=== PATIENT | female | born 1985 | race Caucasian/White ===

== ENCOUNTER 2016-12-09 10:40 | Emergency (ER) | payer OTHER ==
[2016-12-09] MEDS ORDERED: ALBUTEROL SO4 2.5/IPRATROPIUM 0.5 INH SOL 3 ML VIAL.NEB. NEB ONE ×3 (10:47→11:20)
[2016-12-09] MEDS ORDERED: methylPREDNISolone NA SUCC 125 MG/2 ML VIAL ONE (10:47)
[2016-12-09 11:00] VITALS: TEMP 99.3; BMI 30.9
--- NOTE | 2016-12-09 11:02 | PDOC ---
History of Present Illness <Chito Juan - Last Filed: 12/09/16 12:54> - History of Present Illness Initial Comments: 12/09/16 13:36 The patient is a 31 year old female, with a significant past medical history of asthma (admission last year, intubation 10+ years ago), polycystic kidney disease, and hypertension, who presents to the emergency department via ems for increased shortness of breath today. The patient states she has had a cold for the past few days with a cough productive of green sputum. She states she has been using her inhaler every 4 hours as prescribed, with no relief of her shortness of breath. She states she feels like she can not take a deep breath. As per ems, the patient received 2 nebulizer treatments in the ambulance. She denies chest pain, headache and dizziness. She denies fever, chills, nausea , vomit, diarrhea and constipation. She denies dysuria, frequency, urgency and hematuria. Allergies: NKDA PCP - Dr. Thien Hernandez <Rosibel Ortega - Last Filed: 12/09/16 13:37> - General Chief Complaint: Shortness of Breath Stated Complaint: ASTHMA ATTACK Time Seen by Provider: 12/09/16 10:47 Past History - Past Medical History Anemia: No Asthma: Yes Cancer: No Cardiac Disorders: No CVA: No COPD: No Diabetes: No HTN: Yes HIV: Yes (polycystic kidneys) Seizures: No Thyroid Disease: No - Immunization History Immunization Up to Date: Yes - Psycho/Social/Smoking Cessation Hx Anxiety: No Suicidal Ideation: No Smoking Status: No Smoking History: Never smoked Have you smoked in the past 12 months: No Number of Cigarettes Smoked Daily: 0 Information on smoking cessation initiated: No Hx Alcohol Use: No Drug/Substance Use Hx: No Substance Use Type: None Hx Substance Use Treatment: No <Chito Juan - Last Filed: 12/09/16 12:54> <Rosibel Ortega - Last Filed: 12/09/16 13:37> - Past Medical History Allergies/Adverse Reactions: Allergies Allergy/AdvReac Type Severity Reaction Status Date / Time No Known Allergies Allergy Verified 12/09/16 10:54 Home Medications: Ambulatory Orders Albuterol Sulfate Inhaler - [Ventolin HFA Inhaler -] 1 - 2 inh PO Q4H #1 inhaler 03/28/16 Budesonide/Formeterol Fumarate [SYMBICORT 160/4.5mcg -] 2 puff IH BID #1 inhaler 03/28/16 Albuterol 0.083% Nebulizer Koki [Ventolin 0.083% Nebulizer Soln -] 1 neb NEB Q4H PRN #30 vial 08/29/16 Amlodipine Besylate [Norvasc -] 5 mg PO DAILY 12/09/16 Azithromycin [Zithromax -] 250 mg PO DAILY #6 tab 12/09/16 Prednisone [Deltasone -] 40 mg PO DAILY #8 tablet 12/09/16 Review of Systems - Review of Systems Able to Perform ROS?: Yes Comments:: 12/09/16 13:37 CONSTITUTIONAL: No reported: Fever, Chills, Diaphoresis, Generalized Weakness, Malaise, Loss of Appetite HEENT: No reported: Rhinorrhea, Nasal Congestion, Throat Pain, Throat Swelling, Difficulty Swallowing, Mouth Swelling, Ear Pain, Eye Pain, Visual Changes CARDIOVASCULAR: No reported: Chest Pain, Syncope, Palpitations, Irregular Heart Rate, Lightheadedness, Peripheral Edema RESPIRATORY: (+) Cough, Shortness of Breath. No reported:Orthopnea, Wheezing, Stridor, Hemoptysis GASTROINTESTINAL: No reported: Abdominal pain, Abdominal Distension, Nausea, Vomiting, Diarrhea, Constipation, Melena, Hematochezia GENITOURINARY: No reported: Dysuria, Frequency, Urgency, Hesitancy, Flank Pain, Genital Pain MUSCULOSKELETAL: No reported: Myalgia, Arthralgia, Joint Swelling, Back pain, Neck Pain SKIN: No reported: Rash, Itching, Pallor HEMEATOLOGIC/IMMUNOLOGIC: No reported: Easy Bleeding, Easy Bruising, Lymphadenopathy, Frequent infections ENDOCRINE: No reported: Unexplained Weight Gain, Unexplained Weight Loss, Heat Intolerance , Cold Intolerance NEUROLOGIC: No reported: Headache, Focal Weakness, Paresthesias, Vertigo, Lightheadedness, Unsteady Gait, Seizure, Mental Status Changes, Incontinence PSYCHIATRIC: No reported: Anxiety, Depression <Rosibel Ortega - Last Filed: 12/09/16 13:37> *Physical Exam - Vital Signs Last Vital Signs Temp Pulse Resp BP Pulse Ox 99.3 F 104 H 18 151/109 98 12/09/16 10:40 12/09/16 10:40 12/09/16 10:40 12/09/16 10:40 12/09/16 10:40 <Chito Juan - Last Filed: 12/09/16 12:54> - Vital Signs Last Vital Signs Temp Pulse Resp BP Pulse Ox 99.3 F 106 H 22 142/105 100 12/09/16 10:40 12/09/16 11:46 12/09/16 11:46 12/09/16 11:46 12/09/16 11:46 - Physical Exam Comments: 12/09/16 13:37 GENERAL: The patient is awake, alert, and fully oriented, Nontoxic - in no acute distress. HEAD: Normocephalic, atraumatic. EYES: extraocular movements intact, sclera anicteric, conjunctiva clear. ENT: Normal voice, Moist mucous membranes. NECK: Normal range of motion, supple LUNGS: (+) Scattered wheezing with good air movement No rhonchi, no rales. speaking complete sentences. HEART: Regular rate and rhythm, without murmur, rub or gallop. ABDOMEN: Soft, nontender, normoactive bowel sounds. No guarding, no rebound.No CVA tenderness EXTREMITIES: Normal range of motion, no edema. No clubbing or cyanosis. No cords, erythema, or tenderness. NEUROLOGICAL: No facial assymetry, Normal speech, PSYCH: Normal mood, normal affect. SKIN: Warm, Dry, normal turgor, <Rosibel Ortega - Last Filed: 12/09/16 13:37> ED Treatment Course - RADIOLOGY Radiology Studies Ordered: Category Date Time Status CHEST PA & LAT [RAD] Stat Radiology 12/09/16 10:55 Ordered <Chito Juan - Last Filed: 12/09/16 12:54> - Medications Given in the ED: ED Medications Discontinued Medications Generic Name Dose Route Start Last Admin Trade Name Freq PRN Reason Stop Dose Admin Albuterol/Ipratropium 1 amp 12/09/16 11:15 12/09/16 11:08 Duoneb - NEB 12/09/16 11:16 1 amp ONCE ONE Administration Albuterol/Ipratropium 1 amp 12/09/16 11:20 12/09/16 11:20 Duoneb - NEB 12/09/16 11:21 1 amp NOW ONE Administration Guaifenesin/Codeine Phosphate 10 ml 12/09/16 13:07 12/09/16 13:20 Robitussin Ac - PO 12/09/16 13:08 10 ml ONCE ONE Administration <Rosibel Ortega - Last Filed: 12/09/16 13:37> Medical Decision Making - Medical Decision Making 12/09/16 10:58 31y F hx of asthma (1 hospitalization last year, intubation 10+ years ago) presents with URI sypmtoms as well as sob/cough for the past few days - no associated fever. Per EMS sh ewas give solumedrol and 1 duoneb, here her vitals were slightly tachy, sat was 100% on RA - liely b/c she just received a neb, her lungs revealed mild wheezing, but good airmovement. Suspect pts sob/ coughing secondary to bronchospasm with recent URI will give nebs will ck xray will reassess 12/09/16 12:47 pts xray shows suggestion of a developing RUL infiltrate will give azithromycin considered inpatient management, but pt prefers to go home. I feel the pt is a good outpatient candidate. will d/c the pt with azithromycin as well as prednisone We'll have the patient follow up with her primary care doctor return precautions were discussed I discussed the physical exam findings, ancillary test results and final diagnoses with the patient. I answered all of the patient's questions. The patient was satisfied with the care received and felt comfortable with the discharge plan and treatment plan. The patient will call their primary care physician within 24 hours to arrange follow-up and will return to the Emergency Department with any new, persistent or worsening symptoms. A portion of this note was documented by scribe services under my direction. I have reviewed the details of the note, within reason, and agree with the documentation with the following case summary and management plan written by me <Chito Juan - Last Filed: 12/09/16 12:54> *DC/Admit/Observation/Transfer - Discharge Dispostion Admit: No <Chito Juan - Last Filed: 12/09/16 12:54> - Attestations Scribe Attestion: 12/09/16 13:37 Documentation prepared by Rosibel Ortega, acting as medical staff director for Chito Juan MD, <Rosibel Ortega - Last Filed: 12/09/16 13:37> Diagnosis at time of Disposition: Pneumonia Qualifiers: Pneumonia type: due to unspecified organism Laterality: right Lung location: upper lobe of lung Qualified Code(s): J18.9 - Pneumonia, unspecified organism Asthma Qualifiers: Asthma severity: unspecified severity Asthma complication type: with acute exacerbation Qualified Code(s): J45.901 - Unspecified asthma with (acute) exacerbation - Discharge Dispostion Disposition: HOME Condition at time of disposition: Improved - Prescriptions Prescriptions: Prednisone [Deltasone -] 40 mg PO DAILY #8 tablet Azithromycin [Zithromax -] 250 mg PO DAILY #6 tab - Referrals Referrals: Thien Hernandez MD [Primary Care Provider] - - Patient Instructions Printed Discharge Instructions: DI for Asthma -- Adult, DI for Pneumonia -- Adult Additional Instructions: Return to the emergency department immediately with ANY new, persistent or worsening symptoms including any shortness of breath or other concerns. You MUST call and follow up with your doctor tomorrow for further evaluation of your symptoms. Results were discussed with you. Please make sure your doctor reviews the results of your emergency evaluation. Print Language: YAKUT
[2016-12-09 11:47] VITALS: BP 142/105; PULSE 106
[2016-12-09] MEDS ORDERED: guaiFENesin/CODEINE 10 ML UNIT-DOSE CUPS PO ONE (13:07)
[2016-12-09] MEDS ORDERED: guaiFENesin/CODEINE 5 ML UNIT-DOSE CUPS PO ONE (13:16)
== END 2016-12-09 13:32 | disposition home or self-care (01) ==
LOC: JER 10:40
PROC: 3E0F7GC Introduction of Other Therapeutic Substance into Respiratory Tract, Via Natural or Artificial Opening (ICD-10-PCS; principal; 2016-12-09)
PROC: 3E0F7GC Introduction of Other Therapeutic Substance into Respiratory Tract, Via Natural or Artificial Opening (ICD-10-PCS; 2016-12-09)
DX: J18.9 Pneumonia, unspecified organism (principal); J45.901 Unspecified asthma with (acute) exacerbation; I10 Essential (primary) hypertension; E28.2 Polycystic ovarian syndrome
CPT/HCPCS: 71020-TC; 94640; 99283-25

== ENCOUNTER 2016-12-09 20:49 | Inpatient (IN) | payer OTHER ==
[2016-12-09 21:06] VITALS: BMI 25.7
--- NOTE | 2016-12-09 21:49 | PDOC ---
History of Present Illness - History of Present Illness Initial Comments: 12/09/16 22:39 Patient is a 31 year old female with significant medical hx of HTN, polycystic kidney disease, and asthma (admission last year, intubation 10+ years ago) who has returning to the ED after discharge from the ED today for diagnosis of upper lobe pneumonia. Patient was seen earlier today for progressive dyspnea, cold symptoms, and productive cough. She returned to the ED tonight because she was unable to pay for her medication at the pharmacy. PCP: Thien Hernandez MD <Asya Marina - Last Filed: 12/09/16 22:42> <Micaela Bergman - Last Filed: 12/10/16 05:46> - General Chief Complaint: Respiratory Stated Complaint: DIFF BREATHING Time Seen by Provider: 12/09/16 21:49 Past History <Asya Marina - Last Filed: 12/09/16 22:42> - Past Medical History Anemia: No Asthma: Yes Cancer: No Cardiac Disorders: No CVA: No COPD: No Diabetes: No HTN: Yes HIV: Yes (polycystic kidneys) Seizures: No Thyroid Disease: No - Immunization History Immunization Up to Date: Yes - Psycho/Social/Smoking Cessation Hx Anxiety: No Suicidal Ideation: No Smoking Status: No Smoking History: Never smoked Have you smoked in the past 12 months: No Number of Cigarettes Smoked Daily: 0 Hx Alcohol Use: No Drug/Substance Use Hx: No Substance Use Type: None Hx Substance Use Treatment: No <Micaela Bergman - Last Filed: 12/10/16 05:46> - Past Medical History Allergies/Adverse Reactions: Allergies Allergy/AdvReac Type Severity Reaction Status Date / Time No Known Allergies Allergy Verified 12/09/16 21:03 Home Medications: Ambulatory Orders Albuterol Sulfate Inhaler - [Ventolin HFA Inhaler -] 1 - 2 inh PO Q4H #1 inhaler 03/28/16 Budesonide/Formeterol Fumarate [SYMBICORT 160/4.5mcg -] 2 puff IH BID #1 inhaler 03/28/16 Albuterol 0.083% Nebulizer Koki [Ventolin 0.083% Nebulizer Soln -] 1 neb NEB Q4H PRN #30 vial 08/29/16 Amlodipine Besylate [Norvasc -] 5 mg PO DAILY 12/09/16 Azithromycin [Zithromax -] 250 mg PO DAILY #6 tab 12/09/16 Prednisone [Deltasone -] 40 mg PO DAILY #8 tablet 12/09/16 Review of Systems - Review of Systems Comments:: 12/09/16 22:39 CONSTITUTIONAL: Absent: fever, chills, diaphoresis, generalized weakness, malaise, loss of appetite HEENT: Present: rhinorrhea, nasal congestion Absent: throat pain, throat swelling, difficulty swallowing, mouth swelling, ear pain, eye pain, visual changes CARDIOVASCULAR: Absent: chest pain, syncope, palpitations, irregular heart rate, lightheadedness , peripheral edema RESPIRATORY: Present: productive cough, dyspnea, wheezing, stridor Absent: dyspnea with exertion, orthopnea, hemoptysis GASTROINTESTINAL: Absent: abdominal pain, abdominal distension, nausea, vomiting, diarrhea, constipation, melena, hematochezia GENITOURINARY: Absent: dysuria, frequency, urgency, hesitancy, hematuria, flank pain, genital pain MUSCULOSKELETAL: Absent: myalgia, arthralgia, joint swelling SKIN: Absent: rash, itching, pallor HEMATOLOGIC/IMMUNOLOGIC: Absent: easy bleeding, easy bruising, lymphadenopathy, frequent infections ENDOCRINE: Absent: unexplained weight gain, unexplained weight loss, heat intolerance, cold intolerance NEUROLOGIC: Absent: headache, focal weakness or paresthesia, dizziness, unsteady gait, seizure, mental status changes, bladder or bowel incontinence. PSYCHIATRIC: Absent: anxiety, depression, suicidal or homicidal ideation, hallucinations <Laina,Asya - Last Filed: 12/09/16 22:42> *Physical Exam - Vital Signs Last Vital Signs Temp Pulse Resp BP Pulse Ox 98 H 18 148/102 98 12/09/16 21:00 12/09/16 21:00 12/09/16 21:00 12/09/16 21:00 - Physical Exam Comments: 12/09/16 22:40 GENERAL: Well developed, well nourished. Awake and alert. No acute distress. HEENT: Normocephalic, atraumatic. PERRLA, EOMI. No conjunctival pallor. Sclera are non- icteric. Moist mucous membranes. Oropharynx is clear. NECK: Supple. Full ROM. No JVD. Carotid pulses 2+ and symmetric, without bruits. No thyromegaly. No lymphadenopathy. CARDIOVASCULAR: Regular rate and rhythm. No murmurs, rubs, or gallops. Distal pulses are 2+ and symmetric. PULMONARY: Left lung stridor. Bilateral wheezing and rhonchi. No evidence of respiratory distress. ABDOMINAL: Soft. Non-tender. Non-distended. No rebound or guarding. No organomegaly. Normoactive bowel sounds. MUSCULOSKELETAL: Normal range of motion at all joints. No bony deformities or tenderness. No CVA tenderness. EXTREMITIES: No cyanosis. No clubbing. No edema. No calf tenderness. SKIN: Warm and dry. Normal capillary refill. No rashes. No jaundice. NEUROLOGICAL: Alert, awake, appropriate. Cranial nerves 2-12 intact. Normal speech. Gait is normal without ataxia. PSYCHIATRIC: Cooperative. Good eye contact. Appropriate mood and affect. <Asya Marina - Last Filed: 12/09/16 22:42> - Vital Signs Last Vital Signs Temp Pulse Resp BP Pulse Ox 98 H 18 148/102 98 12/09/16 21:00 12/09/16 21:00 12/09/16 21:00 12/09/16 21:00 <Micaela Bergman - Last Filed: 12/10/16 05:46> Heart Score/ECG Review #1 12/09/16 22:43 Poor data quality, interpretation may be adversely affected Normal sinus rhythm at 91 bpm Normal ECG <Asya Marina - Last Filed: 12/09/16 22:42> ED Treatment Course - LABORATORY CBC & Chemistry Diagram: 12/09/16 10:20 12/09/16 10:20 - Medications Given in the ED: ED Medications Discontinued Medications Generic Name Dose Route Start Last Admin Trade Name Freq PRN Reason Stop Dose Admin Ceftriaxone Sodium 1 mg/ 50 mls @ 100 mls/hr 12/09/16 21:59 12/09/16 22:18 Dextrose IVPB 12/09/16 22:28 100 mls/hr ONCE ONE Administration <Asya Marina - Last Filed: 12/09/16 22:42> - LABORATORY CBC & Chemistry Diagram: 12/09/16 10:20 12/09/16 10:20 <Micaela Bergman - Last Filed: 12/10/16 05:46> Medical Decision Making - Medical Decision Making 12/09/16 22:55 pt's EKG is NSR; Pt was here at 11am, and diagnosed with pneumonia; she was sent home with piper; she couldn't afford the copay; she comes back with worsening pneumonia and SOB. SHe will be worked up at this time. CXR ths AM shows an upper lobe pneumonia. WBC is only 5 and she has no fever. 12/10/16 05:45 Pt will be admitted as she is having SOB and she has elevated blood sugasr, and she will require an inpatient hb A1C to differentiate if this is new onset DM or simply due to use of steroids for asthma. Admit to hospitalist <Micaela Bergman - Last Filed: 12/10/16 05:46> *DC/Admit/Observation/Transfer - Attestations Scribe Attestion: 12/09/16 22:42 Documentation prepared by Asya Marina, acting as medical consultant for Micaela Bergman MD. <Asya Marina - Last Filed: 12/09/16 22:42> - Discharge Dispostion Admit: Yes <Micaela Bergman - Last Filed: 12/10/16 05:46> Diagnosis at time of Disposition: Elevated random blood glucose level Pneumonia Qualifiers: Pneumonia type: due to unspecified organism Laterality: right Lung location: upper lobe of lung Qualified Code(s): J18.9 - Pneumonia, unspecified organism - Referrals
[2016-12-09] MEDS ORDERED: CEFTRIAXONE 1 MG in DEXTROSE 5%-WATER - 50 ML IVPB ONE (21:59)
[2016-12-09] MEDS ORDERED: AZITHROMYCIN IVPB 500 MG in DEXTROSE 5%-WATER - 250 ML IVPB ONE (22:00)
[2016-12-09] MEDS ORDERED: AZITHROMYCIN IVPB 250 ML IVPB ONE (22:11)
[2016-12-09] MEDS ORDERED: CEFTRIAXONE 50 ML ONE (22:11)
[2016-12-09 22:38] LABS: BASOPHIL 0.6 % (0-2.0); MCH 29.9 pg (25.7-33.7); MEAN CELL VOLUME 90.7 fl (80-96); MEAN PLT VOLUME 9.4 fl (7.5-11.1); NEUTROPHILS 84.7 % (42.8-82.8); PLATELET COUNT 210 K/MM3 (134-434); RDW 14.1 % (11.6-15.6)
[2016-12-09 23:10] LABS: ALBUMIN 3.7 g/dl (3.4-5.0); CREATININE 1.1 mg/dL (0.55-1.02)
[2016-12-09 23:12] LABS: BILIRUBIN,TOTAL 0.6 mg/dL (0.2-1.0); TOT PROT 7.6 g/dl (6.4-8.2)
--- NOTE | 2016-12-09 23:38 | PN ---
<Angelic Herron - Last Filed: 12/09/16 23:37> Teaching Attending Note Name of Resident: Tri Thao ATTENDING PHYSICIAN STATEMENT I saw and evaluated the patient. I reviewed the resident's note and discussed the case with the resident. I agree with the resident's findings and plan as documented. SUBJECTIVE: OBJECTIVE: ASSESSMENT AND PLAN: <Elinor Ho - Last Filed: 12/10/16 00:40> Teaching Attending Note ATTENDING PHYSICIAN STATEMENT I saw and evaluated the patient. I reviewed the resident's note and discussed the case with the resident. I agree with the resident's findings and plan as documented. SUBJECTIVE: 31 yo F with a PMHx of asthma, polycystic kidney disease and HTN who presented with SOB, rhinorrhea and productive cough with yellow sputum. Patient states that shes had SOB and cough for a few days but her symptoms worsened yesterday. She notes that she has not received her flu shot this year. Allergies: NKDA OBJECTIVE: Last Vital Signs Temp Pulse Resp BP Pulse Ox 98 H 18 148/102 98 12/09/16 21:00 12/09/16 21:00 12/09/16 21:00 12/09/16 21:30 GENERAL: Awake, alert, and fully oriented, in no acute distress Well nourished female resting bed. Able to speak full sentences. Not using accessory muscles for respiration. HEENT: Atraumatic. PERRLA, EOMI. Moist mucosa. No JVD LUNGS: No distress, speaks full sentences, bilateral course expiratory wheezing. HEART: Regular rate and rhythm, normal S1 and S2, no murmurs, rubs or gallops, peripheral pulses normal and equal bilaterally. ABDOMEN: Soft, nontender, normoactive bowel sounds. No guarding, no rebound. No masses EXTREMITIES: Normal inspection, Normal range of motion, no edema. No clubbing or cyanosis. NEUROLOGICAL: Cranial nerves II through XII grossly intact. Normal speech, normal gait, no focal sensorimotor deficits SKIN: Warm, Dry, normal turgor, no rashes or lesions noted. CBCD WBC 5.0 K/mm3 (4.0-10.0) D 12/09/16 10:20 RBC 4.47 M/mm3 (3.60-5.2) 12/09/16 10:20 Hgb 13.4 GM/dL (10.7-15.3) 12/09/16 10:20 Hct 40.6 % (32.4-45.2) 12/09/16 10:20 MCV 90.7 fl (80-96) 12/09/16 10:20 MCHC 33.0 g/dl (32.0-36.0) 12/09/16 10:20 RDW 14.1 % (11.6-15.6) 12/09/16 10:20 Plt Count 210 K/MM3 (134-434) D 12/09/16 10:20 MPV 9.4 fl (7.5-11.1) D 12/09/16 10:20 CMP Sodium 141 mmol/L (136-145) 12/09/16 10:20 Potassium 3.9 mmol/L (3.5-5.1) 12/09/16 10:20 Chloride 106 mmol/L (98-107) 12/09/16 10:20 Carbon Dioxide 24 mmol/L (21-32) 12/09/16 10:20 Anion Gap 11 (8-16) 12/09/16 10:20 BUN 14 mg/dL (7-18) D 12/09/16 10:20 Creatinine 1.1 mg/dL (0.55-1.02) H D 12/09/16 10:20 Creat Clearance w eGFR 57.20 (>60) 12/09/16 10:20 Calcium 9.0 mg/dL (8.5-10.1) 12/09/16 10:20 Total Bilirubin 0.6 mg/dL (0.2-1.0) 12/09/16 10:20 AST 14 U/L (15-37) L D 12/09/16 10:20 ALT 15 U/L (12-78) 12/09/16 10:20 Alkaline Phosphatase 55 U/L (45-117) 12/09/16 10:20 Total Protein 7.6 g/dl (6.4-8.2) 12/09/16 10:20 Albumin 3.7 g/dl (3.4-5.0) 12/09/16 10:20 Chest X-Ray Impression: Developing right upper lobe infiltrate. Follow-up recommended. ASSESSMENT AND PLAN: 31 yo PMHx of asthma, polycystic kidney disease and HTN who presented with cough and SOB found to have right upper lobe pneumonia. 1.) Community acquired Pneumonia -Check urine legionella/ pneumococcal -Check influenza A & B rapid Stat -Continue ceftriaxone and azithromycin -Sputum culture 2.) Hyperglycemia most likely related to steroid use -Outpatient follow up with PMD -3.) Asthma exacerbation -Continue with nebulizers and continue solumedrol finger sticks and RAISS -Mg -Check PEFR -Continue symbicort 3.) CKD -Most likely due to her polycystic kidney disease 4.) HTN -Continue home meds Documentation prepared by Elinor Ho, acting as certified ophthalmic medical technician for Angelic Herron M.D.
--- NOTE | 2016-12-10 00:26 | HP ---
CHIEF COMPLAINT: Cough with yellow phlegm, wheezing with shortness of breath PCP: Dr. Thien Hernandez HISTORY OF PRESENT ILLNESS: Patient is a 31 year old female with a PMHx of Asthma, Polycystic Kidney Disease , and HTN who presented to the ED earlier today complaining of a 2 day history of shortness of breath, wheezing, runny nose, and a productive cough with yellow phlegm. Patient reports she's been using her albuterol pump every 4 hours with no relief of symptoms, which prompted her to come here. In the ED patient was diagnosed right pneumonia and discharged with a prescription for azithromycin and prednisone. Patient then returned to the ED because she could not afford her medications from the pharmacy and noticed that her breathing worsened. Otherwise, patient denies fever, chills, nausea, vomiting, chest pain , headaches, dizziness. Patient was last hospitalized for Asthma exacerbation in march and has a history of being intubated over 10 years ago ER course was notable for: (1) Azithromycin and ceftriaxone (2) Solu-medrol (3) Recent Travel: No PAST MEDICAL HISTORY: HTN, PCKD, Asthma PAST SURGICAL HISTORY: Social History: Smoking: Denies Alcohol: Denies Drugs: Denies Family History: Dad- from [place] at age 66, Mother- PCKD Allergies: No Known Allergies Allergy (Verified 12/09/16 21:03) HOME MEDICATIONS: Medication Instructions Recorded Albuterol Sulfate Inhaler - 1 - 2 inh PO Q4H #1 inhaler 03/28/16 [Ventolin HFA Inhaler -] Budesonide/Formeterol Fumarate 2 puff IH BID #1 inhaler 03/28/16 [SYMBICORT 160/4.5mcg -] Albuterol 0.083% Nebulizer Koki 1 neb NEB Q4H PRN #30 vial 08/29/16 [Ventolin 0.083% Nebulizer Soln -] Amlodipine Besylate [Norvasc -] 5 mg PO DAILY 12/09/16 Azithromycin [Zithromax -] 250 mg PO DAILY #6 tab 12/09/16 Prednisone [Deltasone -] 40 mg PO DAILY #8 tablet 12/09/16 REVIEW OF SYSTEMS CONSTITUTIONAL: Present: Generalized weakness, malaise Absent: fever, chills, diaphoresis, loss of appetite, weight change HEENT: Present: Rhinorrhea, nasal congestion Absent: throat pain, throat swelling, difficulty swallowing, mouth swelling, ear pain, eye pain, visual changes CARDIOVASCULAR: Absent: chest pain, syncope, palpitations, irregular heart rate, lightheadedness , peripheral edema RESPIRATORY: Present: Cough, shortness of breath, wheezing Absent: Dyspnea with exertion, orthopnea, stridor, hemoptysis GASTROINTESTINAL: Absent: abdominal pain, abdominal distension, nausea, vomiting, diarrhea, constipation, melena, hematochezia GENITOURINARY: Absent: dysuria, frequency, urgency, hesitancy, hematuria, flank pain, genital pain MUSCULOSKELETAL: Absent: myalgia, arthralgia, joint swelling, back pain, neck pain SKIN: Absent: rash, itching, pallor HEMATOLOGIC/IMMUNOLOGIC: Absent: easy bleeding, easy bruising, lymphadenopathy, frequent infections ENDOCRINE: Absent: unexplained weight gain, unexplained weight loss, heat intolerance, cold intolerance NEUROLOGIC: Absent: headache, focal weakness or paresthesias, dizziness, unsteady gait, seizure, mental status changes, bladder or bowel incontinence PSYCHIATRIC: Absent: anxiety, depression, suicidal or homicidal ideation, hallucinations. PHYSICAL EXAMINATION Vital Signs - 24 hr 12/09/16 12/09/16 21:00 21:30 Pulse Rate 98 H Respiratory 18 Rate Blood Pressure 148/102 O2 Sat by Pulse 98 98 Oximetry (%) No distress, speaks full sentences, bilateral course expiratory wheezing. GENERAL: Awake, alert, and fully oriented, in no acute distress. Patient able to speak in full sentences HEAD: Normal with no signs of trauma. EYES: Pupils equal, round and reactive to light, extraocular movements intact, sclera anicteric, conjunctiva clear. No lid lag. EARS, NOSE, THROAT: Ears normal, bilateral erythema of nares, oropharynx clear without exudates. Moist mucous membranes. NECK: Normal range of motion, supple without lymphadenopathy, JVD, or masses. LUNGS: Able to speak in full sentences. Bilateral expiratory wheezing throughout right lung bases with audible wheezing. No crackles or rhonchi. No accessory muscle use. HEART: Tachycardic, normal S1 and S2 without murmur, rub or gallop. ABDOMEN: Soft, nontender, not distended, normoactive bowel sounds, no guarding, no rebound, no masses. No hepatomegaly or splenomegaly. MUSCULOSKELETAL: Normal range of motion at all joints. No bony deformities or tenderness. No CVA tenderness. UPPER EXTREMITIES: 2+ pulses, warm, well-perfused. No cyanosis. No clubbing. No peripheral edema. LOWER EXTREMITIES: 2+ pulses, warm, well-perfused. No calf tenderness. No peripheral edema. NEUROLOGICAL: Normal speech. Normal gait. PSYCHIATRIC: Cooperative. Good eye contact. Appropriate mood and affect. SKIN: Warm, dry, normal turgor, no rashes or lesions noted. Laboratory Results - last 24 hr 12/09/16 12/09/16 10:20 10:20 WBC 5.0 D RBC 4.47 Hgb 13.4 Hct 40.6 MCV 90.7 MCHC 33.0 RDW 14.1 Plt Count 210 D MPV 9.4 D Neutrophils % 84.7 H Lymphocytes % 11.2 D Monocytes % 3.5 L Eosinophils % 0.0 Basophils % 0.6 Sodium 141 Potassium 3.9 Chloride 106 Carbon Dioxide 24 Anion Gap 11 BUN 14 D Creatinine 1.1 H D Creat Clearance w eGFR 57.20 Random Glucose 243 H D Calcium 9.0 Total Bilirubin 0.6 AST 14 L D ALT 15 Alkaline Phosphatase 55 Total Protein 7.6 Albumin 3.7 ASSESSMENT/PLAN: Patient is a 31 year old female with a PMHx of asthma, PCKD, and HTN who presented with productive cough, shortness of breath and wheezing for the last two days. Patient was diagnosed with Pneumonia and discharged with a prescription for antibiotics but returned because she was unable to afford her prescription and her shortness of breath and wheezing worsened. Patient admitted to [facility] for further monitoring and management. Community Acquired Pneumonia with Asthma Exacerbation -Azithromycin 500mg IV daily -Ceftriaxone 1gm IV daily -Prednisone 60mg daily -Magnesium Sulfate 1gm ordered -2 Duoneb's given. Continue Duoneb Q6H standing and Q4H PRN -Continue Symbicort -Blood cultures pending -Influenza swab pending -Peak flow measurements Hyperglycemia likely secondary to steroid use -Insulin sliding scale ACHS -BGM Chronic Kidney Disease -Likely from PCKD -Follows up with Nephrology -Will continue to monitor BMP HTN -Continue Norvasc F/E/N -On no fluids -Electrolytes wnl -Sodium controlled diet Prophylaxis -Low risk DVT. Patient able to ambulate. SCD's for DVT -No GI prequired Disposition -Full code -Will be admitted to inpatient for IV antibiotics Visit type - Emergency Visit Emergency Visit: Yes ED Registration Date: 12/10/16 Care time: The patient presented to the Emergency Department on the above date and was hospitalized for further evaluation of their emergent condition. - New Patient This patient is new to me today: Yes Date on this admission: 12/10/16 - Critical Care Critical Care patient: No
[2016-12-10] MEDS ORDERED: MAGNESIUM SULF 50% (8.12 MEQ/2 ML-1 GM VIAL) IVPB ONE (00:29)
[2016-12-10] MEDS ORDERED: ALBUTEROL SO4 2.5/IPRATROPIUM 0.5 INH SOL 3 ML VIAL.NEB. NEB ONE (00:30)
[2016-12-10] MEDS ORDERED: ALBUTEROL SO4 2.5/IPRATROPIUM 0.5 INH SOL 3 ML VIAL.NEB. NEB PRN (00:31)
[2016-12-10] MEDS ORDERED: ALBUTEROL SO4 2.5/IPRATROPIUM 0.5 INH SOL 3 ML VIAL.NEB. NEB SCH (00:45)
[2016-12-10] MEDS: ALBUTEROL SO4 2.5/IPRATROPIUM 0.5 INH SOL 3 ML VIAL.NEB. NEB SCH ×3 (06:40→18:25)
[2016-12-10] MEDS ORDERED: INSULIN SLIDING SCALE (NOVOLOG) 1 VIAL SQ SCH (07:00)
[2016-12-10 07:08] LABS: BASOPHIL 0.2 % (0-2.0); EOSINOPHIL 0.1 % (0-4.5); MCHC 34.2 g/dl (32.0-36.0); MEAN CELL VOLUME 90.6 fl (80-96); MEAN PLT VOLUME 8.5 fl (7.5-11.1); PLATELET COUNT 263 K/MM3 (134-434); RDW 13.6 % (11.6-15.6); WHITE BLOOD COUNT 6.6 K/mm3 (4.0-10.0)
[2016-12-10 07:42] LABS: ALBUMIN 3.5 g/dl (3.4-5.0); ANION GAP 8 (8-16); BILIRUBIN,TOTAL 0.5 mg/dL (0.2-1.0); CALCIUM 8.7 mg/dL (8.5-10.1); CO2 26 mmol/L (21-32); CREATININE 0.8 mg/dL (0.55-1.02); GLUCOSE,RANDOM 99 mg/dL (74-106); SGOT/AST 11 U/L (15-37); SGPT/ALT 14 U/L (12-78); TOT PROT 6.8 g/dl (6.4-8.2)
[2016-12-10 07:43] LABS: ALK PHOS 48 U/L (45-117)
--- NOTE | 2016-12-10 08:47 | PN ---
Progress Note (short form) - Note Progress Note: c/o nasal congestion, dyspnea, and productive cough of yellow sputum. states this has been going on for about 3 days and recently started getting worse. came to the hospital day prior to presentation and sent on steroids and abx but was unable to afford the medications so did not get them. was hospitalized once in the past for similar symptoms and was told she had asthma. no formal testing done. denies smoking (hookah or tobacco). denies Cp, fever, chills, N/V/c/D Current Medications Generic Name Dose Route Start Last Admin Trade Name Freq PRN Reason Stop Dose Admin Albuterol/Ipratropium 1 amp 12/10/16 00:31 Duoneb - NEB Q4H PRN ASTHMA Albuterol/Ipratropium 1 amp 12/10/16 00:52 12/10/16 06:40 Duoneb - NEB 1 amp QIDR CHRISTY Administration Amlodipine Besylate 5 mg 12/10/16 10:00 Norvasc - PO DAILY CHRISTY Azithromycin 500 mg 12/10/16 23:00 Zithromax 500mg Ivpb (Pre-Docked) IVPB 12/10/16 23:01 ONCE ONE Budesonide/Formoterol Fumarate 2 puff 12/10/16 10:00 Symbicort 160/4.5mcg - IH BID CHRISTY Ceftriaxone Sodium 1 gm 12/10/16 23:00 Rocephin 1gm Ivpb (Pre-Docked) IVPB 12/10/16 23:01 ONCE ONE Insulin Aspart 1 vial 12/10/16 07:00 12/10/16 06:10 Novolog Vial Sliding Scale - SQ Not Given ACHS [facility] Protocol Methylprednisolone Sodium Succinate 60 mg 12/10/16 10:00 Solu-Medrol - IVPB 12/10/16 10:01 ONCE ONE Last Vital Signs Temp Pulse Resp BP Pulse Ox 98.5 F 82 20 136/79 98 12/10/16 06:27 12/10/16 06:27 12/10/16 06:27 12/10/16 06:27 12/10/16 00:45 General mild dyspnic at rest HEENT +maxillary sinus tenderness CV S1 S2 tachycardic no murmur/rub/gallop Lungs diffuse wheezing no crackles Abdomen soft NT/ND Extremities no pedal edema CBCD WBC 5.0 K/mm3 (4.0-10.0) D 12/09/16 10:20 RBC 4.47 M/mm3 (3.60-5.2) 12/09/16 10:20 Hgb 13.4 GM/dL (10.7-15.3) 12/09/16 10:20 Hct 40.6 % (32.4-45.2) 12/09/16 10:20 MCV 90.7 fl (80-96) 12/09/16 10:20 MCHC 33.0 g/dl (32.0-36.0) 12/09/16 10:20 RDW 14.1 % (11.6-15.6) 12/09/16 10:20 Plt Count 210 K/MM3 (134-434) D 12/09/16 10:20 MPV 9.4 fl (7.5-11.1) D 12/09/16 10:20 CMP Sodium 142 mmol/L (136-145) 12/10/16 06:05 Potassium 3.8 mmol/L (3.5-5.1) 12/10/16 06:05 Chloride 108 mmol/L (98-107) H 12/10/16 06:05 Carbon Dioxide 26 mmol/L (21-32) 12/10/16 06:05 Anion Gap 8 (8-16) 12/10/16 06:05 BUN 14 mg/dL (7-18) 12/10/16 06:05 Creatinine 0.8 mg/dL (0.55-1.02) D 12/10/16 06:05 Creat Clearance w eGFR > 60 (>60) 12/10/16 06:05 Calcium 8.7 mg/dL (8.5-10.1) 12/10/16 06:05 Total Bilirubin 0.5 mg/dL (0.2-1.0) 12/10/16 06:05 AST 11 U/L (15-37) L D 12/10/16 06:05 ALT 14 U/L (12-78) 12/10/16 06:05 Alkaline Phosphatase 48 U/L (45-117) 12/10/16 06:05 Total Protein 6.8 g/dl (6.4-8.2) 12/10/16 06:05 Albumin 3.5 g/dl (3.4-5.0) 12/10/16 06:05 A/P 31yo F wtih PMH PCKD and HTN presented to the ER and was admitted for further evaluation of their emergent condition 1. CAP- continues to be dyspnic at rest. +RUL infiltrate on CXR. saturating 96% on RA. robitussin prn cough. cont Ceftriaxone and Azithromycin day 1. influenza negative 2. Acute asthma exacerbation- continues to have significant wheezing. cont solumedrol 40mg Q8H, nebs RTC and PRN. cont inhalers 3. Sinus congestion- sudafed 4. hyperglycemia- isolated reading. no hx of diabetes. will d/c iss for now 5. HTN- controlled. cont norvasc 6. DVT ppx- EAM Visit type - Emergency Visit Emergency Visit: Yes ED Registration Date: 12/10/16 Care time: The patient presented to the Emergency Department on the above date and was hospitalized for further evaluation of their emergent condition. - New Patient This patient is new to me today: Yes Date on this admission: 12/10/16 - Critical Care Critical Care patient: No - Discharge Referral Referred to [facility] Med P.C.: No
--- NOTE | 2016-12-10 09:12 | EKG ---
Test Reason : Blood Pressure : / mmHG Vent. Rate : 091 BPM Atrial Rate : 091 BPM P-R Int : 156 ms QRS Dur : 088 ms QT Int : 382 ms P-R-T Axes : 058 051 040 degrees QTc Int : 469 ms POOR DATA QUALITY, INTERPRETATION MAY BE ADVERSELY AFFECTED NORMAL SINUS RHYTHM NORMAL ECG WHEN COMPARED WITH ECG OF 23-MAR-2016 03:58, NO SIGNIFICANT CHANGE WAS FOUND Confirmed by KIM HENRIQUEZ MD ([id number]) on 12/10/2016 9:12:27 AM Referred By: Confirmed By:KIM HENRIQUEZ MD
[2016-12-10] MEDS ORDERED: methylPREDNISolone NA SUCC 125 MG/2 ML VIAL IVPB ONE ×2 (10:00)
[2016-12-10] MEDS: methylPREDNISolone NA SUCC 40 MG/1 ML VIAL IVPB SCH ×2 (10:24→18:15)
[2016-12-10] MEDS: amLODIPine BESYLATE 5 MG TABLET (FP) PO SCH (10:24)
[2016-12-10] MEDS: CEFTRIAXONE 50 ML IVPB SCH (10:24)
[2016-12-10] MEDS: guaiFENesin 200 MG/10 ML 10 ML UNIT-DOSE CUPS PO PRN (10:24)
[2016-12-10] MEDS: PSEUDOEPHEDRINE HCL 30 MG TABLET PO SCH ×3 (10:26→18:15)
[2016-12-10] MEDS: BUDESONIDE/FORMETEROL FUMARATE 160/4.5 mcg INHALER IH SCH ×2 (10:26→22:06)
[2016-12-10] MEDS: AZITHROMYCIN IVPB 250 ML IVPB SCH (10:27)
[2016-12-10] MEDS ORDERED: PT OWN MED DRAWER 7, Y5N ONE (21:24)
[2016-12-10] MEDS ORDERED: AZITHROMYCIN IVPB 500 MG in DEXTROSE 5%-WATER - 250 ML IVPB ONE (23:00)
[2016-12-10] MEDS ORDERED: cefTRIAXone 1 GM/50 ML BAG (PRE-DOCKED) IVPB ONE (23:00)
[2016-12-10] MEDS ORDERED: CEFTRIAXONE 1 GM in DEXTROSE 5%-WATER - 50 ML IVPB ONE (23:00)
[2016-12-10] MEDS ORDERED: AZITHROMYCIN IVPB 500 MG/250 ML D5W PRE-DOCKED IVPB ONE (23:00)
[2016-12-11] MEDS: ALBUTEROL SO4 2.5/IPRATROPIUM 0.5 INH SOL 3 ML VIAL.NEB. NEB SCH ×4 (00:05→17:25)
[2016-12-11] MEDS: PSEUDOEPHEDRINE HCL 30 MG TABLET PO SCH ×4 (00:15→17:15)
[2016-12-11] MEDS: methylPREDNISolone NA SUCC 40 MG/1 ML VIAL IVPB SCH ×3 (02:28→17:15)
--- NOTE | 2016-12-11 10:43 | PN ---
<Sha Meraz - Last Filed: 12/11/16 15:18> Physical Exam: ATTENDING PHYSICIAN STATEMENT I saw and evaluated the patient. I reviewed the resident's note and discussed the case with the resident. I agree with the resident's findings and plan as documented. SUBJECTIVE: seen and evaluated at the bedside OBJECTIVE: diffuse wheezing and persistent cough ASSESSMENT AND PLAN: 31 year old woman admitted for acute on chronic asthma exacerbation Asthma -has diffuse wheezing -cont solumedrol 40 Q8 -cont symbicort -standing duo neb while awake -currently on ceftriaxone/azithromycin though no fever and no elevation in WBC; no impressive infiltrate on recent ED visit so will repeat today <HeideKrissy - Last Filed: 12/11/16 16:14> Physical Exam: SUBJECTIVE: Patient seen and examined patient resting in bed comfortably, in mild distress. No acute events overnight , afebrile and hemodynamically stable. O2 sat high 90's on room air, not using NC O2 because states its not helping. remains tachypneic, wheezing, productive cough with yellow sputum and sob. States that nebs not helping. complains of rhinorrhea and throat irritation. Explained to patient that because her asthma is exacerbated by PNA, symptomatoc relief will likely occur only after several days of IV abx. Denies f/c, chest pain, n/v, abd pain, h/a, diarrhea, constipation or dysuria. OBJECTIVE: Vital Signs Period Temp Pulse Resp BP Sys/Cam Pulse Ox Last 24 Hr 98.2 F-98.7 F 83-98 18-20 131-139/82-96 97 GENERAL: The patient is awake, alert, and fully oriented, in mild distress. HEAD: Normal with no signs of trauma. EYES: PERRL, extraocular movements intact, sclera anicteric, conjunctiva clear. ENT: moist mucous membranes. NECK: Trachea midline, full range of motion, supple. LUNGS: diffuse wheezes HEART: Regular rate and rhythm, S1, S2 ABDOMEN: Soft, nontender, nondistended, normoactive bowel sounds EXTREMITIES: 2+ pulses, warm, well-perfused, no edema. NEUROLOGICAL: Cranial nerves II through XII grossly intact. Normal speech, gait not observed. PSYCH: Normal mood, normal affect. SKIN: Warm, dry Active Medications Generic Name Dose Route Start Last Admin Trade Name Freq PRN Reason Stop Dose Admin Albuterol/Ipratropium 1 amp 12/10/16 00:31 Duoneb - NEB Q4H PRN ASTHMA Albuterol/Ipratropium 1 amp 12/10/16 00:52 12/11/16 07:17 Duoneb - NEB 1 amp QIDR MARQUITA Administration Amlodipine Besylate 5 mg 12/10/16 10:00 12/10/16 10:24 Norvasc - PO 5 mg DAILY MARQUITA Administration Budesonide/Formoterol Fumarate 2 puff 12/10/16 10:00 12/10/16 22:06 Symbicort 160/4.5mcg - IH 2 puff BID MARQUITA Administration Guaifenesin 10 ml 12/10/16 08:37 12/10/16 10:24 Robitussin - PO 10 ml Q4H PRN Administration COUGH Azithromycin 250 mls @ 250 mls/hr 12/10/16 10:00 12/10/16 10:27 Zithromax 500mg Ivpb (Pre-Docked) IVPB 250 mls/hr DAILY MARQUITA Administration Ceftriaxone Sodium 50 mls @ 100 mls/hr 12/10/16 10:00 12/10/16 10:24 Rocephin 1gm Ivpb (Pre-Docked) IVPB 100 mls/hr DAILY MARQUITA Administration Methylprednisolone Sodium Succinate 40 mg 12/10/16 10:00 12/11/16 02:28 Solu-Medrol - IVPB 40 mg Q8H-IV MARQUITA Administration Pseudoephedrine HCl 30 mg 12/10/16 09:30 12/11/16 06:43 Sudafed - PO 30 mg Q6HPO MARQUITA Administration ASSESSMENT/PLAN: This is a 31 yo F with PMH of asthma, HTN and PCKD, who was admitted due to CAP and Asthma exacerbation. She was initially d/c'd from ED on PO abx and prednisone but could not afford meds and returned to ED with worsening SOB, productive cough with yellow sputum, rhinorrhea and wheezing Acute asthma exacerbation due to CAP -afebrile, no leukocytosis, negative blood culture, influenza negative -respiratory virus panel p/d -sputum culture -a/p and lat CXR shows possible small b/l pleural effusions but otherwise clear -continues to wheeze, dyspneic at rest but sats high 90's% on RA. -continue medrol 40q8 -continue azithromycin (as anti-inflamatory properties). can stop cefriaxone. -duoneb qid marquita, q4h prn -Robitussin Dm q4h marquita -symbicort bid marquita Sinus congestion -sudafed hyperglycemia -incidental reading and no hx of diabetes -could be steroid related HTN -norvasc FEN: No IVF lyte monitoring not indicated DVT GI PPX: scd's, early ambulation, diet Na controlled diet Dispo: monitor in med loulou Problem List - Problems (1) Elevated random blood glucose level Code(s): R73.09 - OTHER ABNORMAL GLUCOSE (2) Pneumonia Code(s): J18.9 - PNEUMONIA, UNSPECIFIED ORGANISM Qualifiers: Pneumonia type: due to unspecified organism Laterality: right Lung location: upper lobe of lung Qualified Code(s): J18.9 - Pneumonia, unspecified organism (3) Polycystic kidney disease Code(s): Q61.3 - POLYCYSTIC KIDNEY, UNSPECIFIED (4) Upper respiratory tract infection Code(s): J06.9 - ACUTE UPPER RESPIRATORY INFECTION, UNSPECIFIED (5) Asthma Code(s): J45.909 - UNSPECIFIED ASTHMA, UNCOMPLICATED Qualifiers: Asthma severity: unspecified severity Asthma complication type: with acute exacerbation Qualified Code(s): J45.901 - Unspecified asthma with ( acute) exacerbation (6) Asthma exacerbation Code(s): J45.901 - UNSPECIFIED ASTHMA WITH (ACUTE) EXACERBATION (7) HTN Hypertensive heart disease Code(s): I11.9 - HYPERTENSIVE HEART DISEASE WITHOUT HEART FAILURE (8) Community acquired bacterial pneumonia Code(s): J15.9 - UNSPECIFIED BACTERIAL PNEUMONIA Visit type - Emergency Visit Emergency Visit: Yes ED Registration Date: 12/10/16 Care time: The patient presented to the Emergency Department on the above date and was hospitalized for further evaluation of their emergent condition. - New Patient This patient is new to me today: Yes Date on this admission: 12/11/16 - Critical Care Critical Care patient: No - Discharge Referral Referred to [facility] Med P.C.: No
[2016-12-11] MEDS ORDERED: PT OWN MED DRAWER 7, Y5N ONE ×4 (10:45→20:35)
[2016-12-11] MEDS: guaiFENesin 200 MG/10 ML 10 ML UNIT-DOSE CUPS PO PRN (10:51)
[2016-12-11] MEDS: amLODIPine BESYLATE 5 MG TABLET (FP) PO SCH (10:51)
[2016-12-11] MEDS: BUDESONIDE/FORMETEROL FUMARATE 160/4.5 mcg INHALER IH SCH ×2 (10:52→21:35)
[2016-12-11] MEDS: CEFTRIAXONE 50 ML IVPB SCH (10:52)
[2016-12-11] MEDS: AZITHROMYCIN IVPB 250 ML IVPB SCH (10:53)
[2016-12-11] MEDS ORDERED: guaiFENesin/D-METHORPHAN HB 10 ML UNIT-DOSE CUPS PO SCH (11:00)
[2016-12-11] MEDS: guaiFENesin/D-METHORPHAN HB 10 ML UNIT-DOSE CUPS PO SCH ×3 (15:11→21:35)
[2016-12-12] MEDS: ALBUTEROL SO4 2.5/IPRATROPIUM 0.5 INH SOL 3 ML VIAL.NEB. NEB SCH ×5 (00:03→23:21)
[2016-12-12] MEDS: PSEUDOEPHEDRINE HCL 30 MG TABLET PO SCH ×5 (00:15→23:47)
[2016-12-12] MEDS: methylPREDNISolone NA SUCC 40 MG/1 ML VIAL IVPB SCH ×3 (02:01→21:21)
[2016-12-12] MEDS: guaiFENesin/D-METHORPHAN HB 10 ML UNIT-DOSE CUPS PO SCH ×5 (06:42→21:21)
[2016-12-12 08:08] LABS: MCHC 33.9 g/dl (32.0-36.0); MEAN CELL VOLUME 91.5 fl (80-96); MEAN PLT VOLUME 9.2 fl (7.5-11.1); PLATELET COUNT 226 K/MM3 (134-434); WHITE BLOOD COUNT 8.6 K/mm3 (4.0-10.0)
[2016-12-12 08:29] LABS: CALCIUM 8.6 mg/dL (8.5-10.1); CREATININE 0.9 mg/dL (0.55-1.02); MAGNESIUM 2.5 mg/dL (1.8-2.4); PHOSPHOROUS 3.2 mg/dL (2.5-4.9)
[2016-12-12] MEDS: AZITHROMYCIN IVPB 250 ML IVPB SCH (09:32)
[2016-12-12] MEDS: BUDESONIDE/FORMETEROL FUMARATE 160/4.5 mcg INHALER IH SCH ×2 (09:32→21:21)
[2016-12-12] MEDS: amLODIPine BESYLATE 5 MG TABLET (FP) PO SCH (09:33)
--- NOTE | 2016-12-12 10:44 | PN ---
<Krissy Jaeger - Last Filed: 12/12/16 11:22> Physical Exam: SUBJECTIVE: Patient seen and examined Patient resting in bed comfortably, in mild distress. No acute events overnight , afebrile and hemodynamically stable. O2 sat high 90's on room air, occasionally using NC O2. Feels overall better, reports less wheezing but remains tachypneic, with productive cough with yellow sputum and sob. Still has rhinorrhea and throat irritation. One episode of post tussive vomiting last night. Denies f/c, chest pain, n/v, abd pain, h/a, diarrhea, constipation or dysuria. OBJECTIVE: Vital Signs Period Temp Pulse Resp BP Sys/Cam Pulse Ox Last 24 Hr 98.1 F-98.6 F 85-104 18-20 135-144/86-99 96-98 GENERAL: The patient is awake, alert, and fully oriented, in mild distress. HEAD: Normal with no signs of trauma. EYES: PERRL, extraocular movements intact, sclera anicteric, conjunctiva clear. ENT: moist mucous membranes. NECK: Trachea midline, full range of motion, supple. LUNGS: diffuse wheezes and poor air movement but overall better HEART: Regular rate and rhythm, S1, S2 ABDOMEN: Soft, nontender, nondistended, normoactive bowel sounds EXTREMITIES: 2+ pulses, warm, well-perfused, no edema. NEUROLOGICAL: Cranial nerves II through XII grossly intact. Normal speech, gait not observed. PSYCH: Normal mood, normal affect. SKIN: Warm, dry Laboratory Results - last 24 hr 12/12/16 12/12/16 06:30 06:30 WBC 8.6 D RBC 4.27 Hgb 13.3 Hct 39.1 MCV 91.5 MCHC 33.9 RDW 14.0 Plt Count 226 MPV 9.2 Sodium 141 Potassium 4.3 Chloride 104 Carbon Dioxide 27 Anion Gap 10 BUN 21 H D Creatinine 0.9 Random Glucose 145 H D Calcium 8.6 Phosphorus 3.2 Magnesium 2.5 H D Active Medications Generic Name Dose Route Start Last Admin Trade Name Freq PRN Reason Stop Dose Admin Albuterol/Ipratropium 1 amp 12/10/16 00:31 Duoneb - NEB Q4H PRN ASTHMA Albuterol/Ipratropium 1 amp 12/10/16 00:52 12/12/16 07:36 Duoneb - NEB 1 amp QIDR MARQUITA Administration Amlodipine Besylate 5 mg 12/10/16 10:00 12/12/16 09:33 Norvasc - PO 5 mg DAILY MARQUITA Administration Budesonide/Formoterol Fumarate 2 puff 12/10/16 10:00 12/12/16 09:32 Symbicort 160/4.5mcg - IH 2 puff BID MARQUITA Administration Guaifenesin 10 ml 12/11/16 12:41 12/12/16 09:32 Robitussin Dm - PO 10 ml Q4HWA MARQUITA Administration Azithromycin 250 mls @ 250 mls/hr 12/10/16 10:00 12/12/16 09:32 Zithromax 500mg Ivpb (Pre-Docked) IVPB 250 mls/hr DAILY MARQUITA Administration Methylprednisolone Sodium Succinate 40 mg 12/10/16 10:00 12/12/16 09:32 Solu-Medrol - IVPB 40 mg Q8H-IV MARQUITA Administration Pseudoephedrine HCl 30 mg 12/10/16 09:30 12/12/16 06:43 Sudafed - PO 30 mg Q6HPO MARQUITA Administration ASSESSMENT/PLAN: This is a 31 yo F with PMH of asthma, HTN and PCKD, who was admitted due to CAP and Asthma exacerbation. She was initially d/c'd from ED on PO abx and prednisone but could not afford meds and returned to ED with worsening SOB, productive cough with yellow sputum, rhinorrhea and wheezing Acute asthma exacerbation due to CAP -afebrile, no leukocytosis, negative blood culture, influenza negative -respiratory virus panel p/d -sputum culture -a/p and lat CXR shows possible small b/l pleural effusions but otherwise clear -continues to wheeze, dyspneic at rest but sats high 90's% on RA but slightly improved today -medrol 40 bid -continue azithromycin -duoneb qid marquita, q4h prn -Robitussin Dm q4h marquita -symbicort bid marquita Sinus congestion -sudafed hyperglycemia -incidental reading and no hx of diabetes -could be steroid related HTN -norvasc FEN: No IVF lyte monitoring not indicated DVT GI PPX: scd's, early ambulation, diet Na controlled diet Dispo: monitor in med loulou Problem List - Problems (1) Elevated random blood glucose level Code(s): R73.09 - OTHER ABNORMAL GLUCOSE (2) Pneumonia Code(s): J18.9 - PNEUMONIA, UNSPECIFIED ORGANISM Qualifiers: Pneumonia type: due to unspecified organism Laterality: right Lung location: upper lobe of lung Qualified Code(s): J18.9 - Pneumonia, unspecified organism (3) Polycystic kidney disease Code(s): Q61.3 - POLYCYSTIC KIDNEY, UNSPECIFIED (4) Upper respiratory tract infection Code(s): J06.9 - ACUTE UPPER RESPIRATORY INFECTION, UNSPECIFIED (5) Asthma Code(s): J45.909 - UNSPECIFIED ASTHMA, UNCOMPLICATED Qualifiers: Asthma severity: unspecified severity Asthma complication type: with acute exacerbation Qualified Code(s): J45.901 - Unspecified asthma with ( acute) exacerbation (6) Asthma exacerbation Code(s): J45.901 - UNSPECIFIED ASTHMA WITH (ACUTE) EXACERBATION (7) HTN Hypertensive heart disease Code(s): I11.9 - HYPERTENSIVE HEART DISEASE WITHOUT HEART FAILURE (8) Community acquired bacterial pneumonia Code(s): J15.9 - UNSPECIFIED BACTERIAL PNEUMONIA Visit type - Emergency Visit Emergency Visit: Yes ED Registration Date: 12/10/16 Care time: The patient presented to the Emergency Department on the above date and was hospitalized for further evaluation of their emergent condition. - New Patient This patient is new to me today: No - Critical Care Critical Care patient: No - Discharge Referral Referred to [facility] Med P.C.: No <Sha Meraz - Last Filed: 12/12/16 12:02> Physical Exam: ATTENDING PHYSICIAN STATEMENT I saw and evaluated the patient. I reviewed the resident's note and discussed the case with the resident. I agree with the resident's findings and plan as documented. SUBJECTIVE: seen and evaluated at the bedside OBJECTIVE: wheezing much improved from yesterday ASSESSMENT AND PLAN: 31 year old woman admitted for acute on chronic asthma exacerbation Asthma -wheezing much improved from yesterday -decrease solumedrol 40 Q8 to 40 Q12 -cont symbicort -standing duo neb while awake -cont azithromycin for atypical community acquired pneumonia
[2016-12-12] MEDS ORDERED: PT OWN MED DRAWER 7, Y5N ONE ×2 (21:26→23:45)
[2016-12-13] MEDS: ALBUTEROL SO4 2.5/IPRATROPIUM 0.5 INH SOL 3 ML VIAL.NEB. NEB SCH ×4 (06:07→23:00)
[2016-12-13] MEDS: PSEUDOEPHEDRINE HCL 30 MG TABLET PO SCH ×3 (06:36→17:41)
[2016-12-13] MEDS: guaiFENesin/D-METHORPHAN HB 10 ML UNIT-DOSE CUPS PO SCH ×2 (06:36→11:01)
[2016-12-13] MEDS ORDERED: guaiFENesin/CODEINE 5 ML UNIT-DOSE CUPS PO PRN (10:30)
--- NOTE | 2016-12-13 10:32 | PN ---
<Krissy Jaeger - Last Filed: 12/13/16 12:09> Physical Exam: SUBJECTIVE: Patient seen and examined Patient resting in bed comfortably, NADs. No acute events overnight, afebrile and hemodynamically stable. O2 sat high 90's on room air, occasionally using NC O2. Feels better, cough and sob are unchanged but wheezing may be reduced. Reports productive cough with clear sputum. Denies f/c, chest pain, n/v, abd pain, h/a, diarrhea, constipation or dysuria. OBJECTIVE: Vital Signs Period Temp Pulse Resp BP Sys/Cam Pulse Ox Last 24 Hr 98.2 F-98.9 F 90-117 18-20 141-156/88-94 97-97 GENERAL: The patient is awake, alert, and fully oriented, in mild distress. HEAD: Normal with no signs of trauma. EYES: PERRL, extraocular movements intact, sclera anicteric, conjunctiva clear. ENT: moist mucous membranes. NECK: Trachea midline, full range of motion, supple. LUNGS: diffuse wheezes and poor air movement> wheezing unchanged from yesterday but air movement is better b/l HEART: Regular rate and rhythm, S1, S2 ABDOMEN: Soft, nontender, nondistended, normoactive bowel sounds EXTREMITIES: 2+ pulses, warm, well-perfused, no edema. NEUROLOGICAL: Cranial nerves II through XII grossly intact. Normal speech, gait not observed. PSYCH: Normal mood, normal affect. SKIN: Warm, dry Active Medications Generic Name Dose Route Start Last Admin Trade Name Freq PRN Reason Stop Dose Admin Albuterol/Ipratropium 1 amp 12/10/16 00:31 Duoneb - NEB Q4H PRN ASTHMA Albuterol/Ipratropium 1 amp 12/10/16 00:52 12/13/16 06:07 Duoneb - NEB 1 amp QIDR MARQUITA Administration Amlodipine Besylate 5 mg 12/10/16 10:00 12/12/16 09:33 Norvasc - PO 5 mg DAILY MARQUITA Administration Budesonide/Formoterol Fumarate 2 puff 12/10/16 10:00 12/12/16 21:21 Symbicort 160/4.5mcg - IH 2 puff BID MARQUITA Administration Guaifenesin/Codeine Phosphate 5 ml 01/19/17 10:30 Robitussin Ac - PO TID PRN COUGH Azithromycin 250 mls @ 250 mls/hr 12/10/16 10:00 12/12/16 09:32 Zithromax 500mg Ivpb (Pre-Docked) IVPB 250 mls/hr DAILY MARQUITA Administration Methylprednisolone Sodium Succinate 40 mg 12/12/16 22:00 12/12/16 21:21 Solu-Medrol - IVPB 40 mg BID MARQUITA Administration Pseudoephedrine HCl 30 mg 12/10/16 09:30 12/13/16 06:36 Sudafed - PO 30 mg Q6HPO MARQUITA Administration ASSESSMENT/PLAN: This is a 31 yo F with PMH of asthma, HTN and PCKD, who was admitted due to CAP and Asthma exacerbation. She was initially d/c'd from ED on PO abx and prednisone but could not afford meds and returned to ED with worsening SOB, productive cough with yellow sputum, rhinorrhea and wheezing Acute asthma exacerbation due to CAP -afebrile, no leukocytosis, negative blood culture, influenza negative -respiratory virus panel p/d -sputum culture p/d -a/p and lat CXR shows possible small b/l pleural effusions but otherwise clear -continues to wheeze but less, dyspneic at rest but sats high 90's% on RA -medrol 40 bid day 2 -continue azithromycin IV day 4 -duoneb qid marquita, q4h prn -Robitussin Ac q4h marquita -symbicort bid marquita Sinus congestion -sudafed hyperglycemia -incidental reading and no hx of diabetes -could be steroid related HTN -norvasc FEN: No IVF lyte monitoring not indicated DVT GI PPX: scd's, early ambulation, diet Na controlled diet Dispo: monitor in med loulou Problem List - Problems (1) Elevated random blood glucose level Code(s): R73.09 - OTHER ABNORMAL GLUCOSE (2) Pneumonia Code(s): J18.9 - PNEUMONIA, UNSPECIFIED ORGANISM Qualifiers: Pneumonia type: due to unspecified organism Laterality: right Lung location: upper lobe of lung Qualified Code(s): J18.9 - Pneumonia, unspecified organism (3) Polycystic kidney disease Code(s): Q61.3 - POLYCYSTIC KIDNEY, UNSPECIFIED (4) Upper respiratory tract infection Code(s): J06.9 - ACUTE UPPER RESPIRATORY INFECTION, UNSPECIFIED (5) Asthma Code(s): J45.909 - UNSPECIFIED ASTHMA, UNCOMPLICATED Qualifiers: Asthma severity: unspecified severity Asthma complication type: with acute exacerbation Qualified Code(s): J45.901 - Unspecified asthma with ( acute) exacerbation (6) Asthma exacerbation Code(s): J45.901 - UNSPECIFIED ASTHMA WITH (ACUTE) EXACERBATION (7) HTN Hypertensive heart disease Code(s): I11.9 - HYPERTENSIVE HEART DISEASE WITHOUT HEART FAILURE (8) Community acquired bacterial pneumonia Code(s): J15.9 - UNSPECIFIED BACTERIAL PNEUMONIA Visit type - Emergency Visit Emergency Visit: Yes ED Registration Date: 12/10/16 Care time: The patient presented to the Emergency Department on the above date and was hospitalized for further evaluation of their emergent condition. - New Patient This patient is new to me today: No - Critical Care Critical Care patient: No - Discharge Referral Referred to [facility] Med P.C.: No <Sha Meraz - Last Filed: 12/13/16 12:37> Physical Exam: ATTENDING PHYSICIAN STATEMENT I saw and evaluated the patient. I reviewed the resident's note and discussed the case with the resident. I agree with the resident's findings and plan as documented. SUBJECTIVE: seen and evaluated at the bedside OBJECTIVE: wheezing much improved from yesterday ASSESSMENT AND PLAN: 31 year old woman admitted for acute on chronic asthma exacerbation Asthma -still wheezing but air movement improved from yesterday -cont solumedrol 40 Q12 -cont symbicort -standing duo neb while awake -cont azithromycin for atypical community acquired pneumonia
[2016-12-13] MEDS: amLODIPine BESYLATE 5 MG TABLET (FP) PO SCH (10:50)
[2016-12-13] MEDS: methylPREDNISolone NA SUCC 40 MG/1 ML VIAL IVPB SCH ×2 (10:50→22:16)
[2016-12-13] MEDS: AZITHROMYCIN IVPB 250 ML IVPB SCH (10:50)
[2016-12-13] MEDS: BUDESONIDE/FORMETEROL FUMARATE 160/4.5 mcg INHALER IH SCH ×2 (10:51→22:24)
[2016-12-13] MEDS ORDERED: PT OWN MED DRAWER 7, Y5N ONE (23:47)
[2016-12-14] MEDS: PSEUDOEPHEDRINE HCL 30 MG TABLET PO SCH ×4 (00:05→17:54)
[2016-12-14] MEDS ORDERED: PT OWN MED DRAWER 7, Y5N ONE (05:36)
[2016-12-14] MEDS: ALBUTEROL SO4 2.5/IPRATROPIUM 0.5 INH SOL 3 ML VIAL.NEB. NEB SCH ×3 (06:56→17:46)
[2016-12-14] MEDS: AZITHROMYCIN IVPB 250 ML IVPB SCH (09:36)
[2016-12-14] MEDS: amLODIPine BESYLATE 5 MG TABLET (FP) PO SCH (09:36)
[2016-12-14] MEDS: methylPREDNISolone NA SUCC 40 MG/1 ML VIAL IVPB SCH (09:36)
[2016-12-14] MEDS: BUDESONIDE/FORMETEROL FUMARATE 160/4.5 mcg INHALER IH SCH (09:37)
--- NOTE | 2016-12-14 11:22 | DS ---
Physical Exam: ATTENDING PHYSICIAN STATEMENT I saw and evaluated the patient. I reviewed the resident's note and discussed the case with the resident. I agree with the resident's findings and plan as documented. SUBJECTIVE: seen and evaluated at the bedside OBJECTIVE: wheezing much improved from yesterday ASSESSMENT AND PLAN: 31 year old woman admitted for acute on chronic asthma exacerbation Asthma -wheezing improved and air movement improved from yesterday -was on solumedrol 40 Q12; discharge on prednisone 40 QD -cont symbicort -cont azithromycin for atypical community acquired pneumonia <Sha Meraz - Last Filed: 12/14/16 15:21> Physical Exam: SUBJECTIVE: Patient seen and examined Patient resting in bed comfortably, NAD. No acute events overnight, afebrile and hemodynamically stable. O2 sat high 90's on room air. Feels well, cough improved and wheezing/sob resolved after mucomyst treatment. Denies f/c, chest pain, n/v, abd pain, h/a, diarrhea, constipation or dysuria. OBJECTIVE: Vital Signs Period Temp Pulse Resp BP Sys/Cam Pulse Ox Last 24 Hr 98 F-98.4 F 80-95 16-20 110-145/80-93 98-98 PHYSICAL EXAM GENERAL: The patient is awake, alert, and fully oriented, in no distress. HEAD: Normal with no signs of trauma. EYES: PERRL, extraocular movements intact, sclera anicteric, conjunctiva clear. ENT: moist mucous membranes. NECK: Trachea midline, full range of motion, supple. LUNGS: cta b/l, slighlty restricted air movement, no wheezes HEART: Regular rate and rhythm, S1, S2 ABDOMEN: Soft, nontender, nondistended, normoactive bowel sounds EXTREMITIES: 2+ pulses, warm, well-perfused, no edema. NEUROLOGICAL: Cranial nerves II through XII grossly intact. Normal speech, gait not observed. PSYCH: Normal mood, normal affect. SKIN: Warm, dry LABS HOSPITAL COURSE: Date of Admission:12/10/16 Patient is a 31 year old female with a PMHx of Asthma, Polycystic Kidney Disease , and HTN who presented to the ED earlier today complaining of a 2 day history of shortness of breath, wheezing, runny nose, and a productive cough with yellow phlegm. Patient reports she's been using her albuterol pump every 4 hours with no relief of symptoms, which prompted her to come here. In the ED patient was diagnosed right pneumonia and discharged with a prescription for azithromycin and prednisone. Patient then returned to the ED because she could not afford her medications from the pharmacy and noticed that her breathing worsened. Otherwise, patient denies fever, chills, nausea, vomiting, chest pain , headaches, dizziness. Patient was last hospitalized for Asthma exacerbation in march and has a history of being intubated over 10 years ago. She was admitted due to Acute asthma exacerbation due to CAP. She was afebrile, no leukocytosis, negative blood and sputum culture, influenza negative. On admission a/p and lat CXR showed possible small b/l pleural effusions but otherwise clear. She had a lot of wheezing but resolved with nebs and especially with Mucomyst, whihc is a treatment to consider outpatient for asthma exacerbation. She finished a 5 day course of IV azithromycin. She was treated with IV medrol. She was also treated with duoneb, Robitussin Ac, symbicort and sudafed. She was sent home in a stable condition on a steroid taper with duoneb prn. Date of Discharge: 12/14/16 Minutes to complete discharge: 30 (na) <Krissy Jaeger - Last Filed: 12/14/16 16:19> Discharge Summary Current Active Problems Community acquired bacterial pneumonia (Acute) Elevated random blood glucose level (Acute) Pneumonia (Acute) Polycystic kidney disease (Acute) Upper respiratory tract infection (Acute) - Home Medications Comprehensive Discharge Medication List: Ambulatory Orders Albuterol Sulfate Inhaler - [Ventolin HFA Inhaler -] 1 - 2 inh PO Q4H #1 inhaler 03/28/16 Budesonide/Formeterol Fumarate [SYMBICORT 160/4.5mcg -] 2 puff IH BID #1 inhaler 03/28/16 Albuterol 0.083% Nebulizer Koki [Ventolin 0.083% Nebulizer Soln -] 1 neb NEB Q4H PRN #30 vial 08/29/16 Amlodipine Besylate [Norvasc -] 5 mg PO DAILY 12/09/16 Azithromycin [Zithromax -] 250 mg PO DAILY #6 tab 12/09/16 Prednisone [Deltasone -] 40 mg PO DAILY #8 tablet 12/09/16 <hSa Meraz - Last Filed: 12/14/16 15:21> Reason For Visit: PNEUMONIA, ELEVATED RANDOM BLOOD GLUCOSE Current Active Problems Community acquired bacterial pneumonia (Acute) Elevated random blood glucose level (Acute) Pneumonia (Acute) Polycystic kidney disease (Acute) Upper respiratory tract infection (Acute) - Home Medications Comprehensive Discharge Medication List: Ambulatory Orders Albuterol Sulfate Inhaler - [Ventolin HFA Inhaler -] 1 - 2 inh PO Q4H #1 inhaler 03/28/16 Budesonide/Formeterol Fumarate [SYMBICORT 160/4.5mcg -] 2 puff IH BID #1 inhaler 03/28/16 Albuterol 0.083% Nebulizer Koki [Ventolin 0.083% Nebulizer Soln -] 1 neb NEB Q4H PRN #30 vial 08/29/16 Amlodipine Besylate [Norvasc -] 5 mg PO DAILY 12/09/16 Azithromycin [Zithromax -] 250 mg PO DAILY #6 tab 12/09/16 Prednisone [Deltasone -] 40 mg PO DAILY #8 tablet 12/09/16 <Krissy Jaeger - Last Filed: 12/14/16 16:19> Condition: Stable - Instructions Diet, Activity, Other Instructions: you were hospitalized due to asthma exacerbation in the setting of community acquired pneumonia you have finished a course of intravenous antibiotic and do not need further antibiotic please take prednisone 40 mg daily for 4 days use Duoneb nebulizer as needed resume home medication In the hospital you were given Mucomyst breathing treatment, which helped loosen your respiratory secretions and relieve the wheezing. It is a good medication to consider taking as needed in the future. Follow up with your primary care doctor within the week. Return to hospital if symptoms worsen Referrals: Thien Hernandez MD [Primary Care Provider] - 1 Week Problem List - Problems (1) Elevated random blood glucose level Code(s): R73.09 - OTHER ABNORMAL GLUCOSE (2) Pneumonia Code(s): J18.9 - PNEUMONIA, UNSPECIFIED ORGANISM Qualifiers: Pneumonia type: due to unspecified organism Laterality: right Lung location: upper lobe of lung Qualified Code(s): J18.9 - Pneumonia, unspecified organism (3) Polycystic kidney disease Code(s): Q61.3 - POLYCYSTIC KIDNEY, UNSPECIFIED (4) Upper respiratory tract infection Code(s): J06.9 - ACUTE UPPER RESPIRATORY INFECTION, UNSPECIFIED (5) Asthma Code(s): J45.909 - UNSPECIFIED ASTHMA, UNCOMPLICATED Qualifiers: Asthma severity: unspecified severity Asthma complication type: with acute exacerbation Qualified Code(s): J45.901 - Unspecified asthma with ( acute) exacerbation (6) Asthma exacerbation Code(s): J45.901 - UNSPECIFIED ASTHMA WITH (ACUTE) EXACERBATION (7) HTN Hypertensive heart disease Code(s): I11.9 - HYPERTENSIVE HEART DISEASE WITHOUT HEART FAILURE (8) Community acquired bacterial pneumonia Code(s): J15.9 - UNSPECIFIED BACTERIAL PNEUMONIA <Krissy Jaeger - Last Filed: 12/14/16 16:19> This patient is new to me today: No Emergency Visit: Yes ED Registration Date: 12/10/16 Care time: The patient presented to the Emergency Department on the above date and was hospitalized for further evaluation of their emergent condition. Critical Care patient: No - Discharge Referral Referred to [facility] Med P.C.: No <Krissy Jaeger - Last Filed: 12/14/16 16:19>
[2016-12-14] MEDS: ACETYLCYSTEINE 20% 200MG/ML 4 ML VIAL *FOR ORAL / INH USE ONLY NEB SCH ×2 (13:55→17:46)
[2016-12-14 14:50] VITALS: BP 156/100; PULSE 114; TEMP 98.8
== END 2016-12-14 18:48 | disposition home or self-care (01) | DRG 140 ==
LOC: JER 20:49 → JERBED 12-10 00:17 → J8W 12-10 03:45
PROVIDERS: ADMIT Internal Medicine; ATTEND Internal Medicine
DX: J44.1 Chronic obstructive pulmonary disease with (acute) exacerbation (principal); J45.901 Unspecified asthma with (acute) exacerbation; J18.9 Pneumonia, unspecified organism; J06.9 Acute upper respiratory infection, unspecified; Q61.3 Polycystic kidney, unspecified; I11.9 Hypertensive heart disease without heart failure
CPT/HCPCS: 36415; 71020-TC; 80048; 80053; 83735; 84100; 85025; 85027; 87040; 87070; 87205; 87254; 87804; 93005; 93010; 94640; 99285-25

== ENCOUNTER 2017-07-10 20:02 | Emergency (ER) | payer OTHER ==
[2017-07-10 20:26] VITALS: BP 90/60; PULSE 94; TEMP 103; BMI 26.0
--- NOTE | 2017-07-10 20:37 | PDOC ---
History of Present Illness - General Exam Limitations: No Limitations - History of Present Illness Initial Comments: 07/10/17 20:52 The patient is a 32 year old female with a significant past medical history of HTN, polycystic kidney disease, and asthma who presents to the ED with 4 days of abdominal pain. The patient reports diffuse abdominal pain with slight dysuria. She states she is unable to eat secondary to her abdominal pain. Patient also reports a non productive cough associated with present symptoms. Denies sick contact. Denies recent travel. Denies fevers or chills. Denies nausea, vomiting, or diarrhea. Denies hematuria or frequency. Denies chest pain or shortness of breath. Denies any other symptoms. Surgical hx: x2 <Nimo Christie - Last Filed: 07/11/17 03:36> - General History Source: Patient <ShubhamJuan José lopez - Last Filed: 07/11/17 03:42> - General Chief Complaint: Nausea/Vomiting Stated Complaint: ABD PAIN Time Seen by Provider: 07/10/17 20:37 Past History <Nimo Christie - Last Filed: 07/11/17 03:36> - Past Medical History Anemia: No Asthma: Yes Cancer: No Cardiac Disorders: No CVA: No COPD: No Diabetes: No HTN: Yes HIV: Yes (polycystic kidneys) Seizures: No Thyroid Disease: No - Immunization History Immunization Up to Date: Yes - Psycho/Social/Smoking Cessation Hx Anxiety: No Suicidal Ideation: No Smoking Status: No Smoking History: Never smoked Have you smoked in the past 12 months: No Number of Cigarettes Smoked Daily: 0 Information on smoking cessation initiated: No Hx Alcohol Use: No Drug/Substance Use Hx: No Substance Use Type: None Hx Substance Use Treatment: No <Juan José Morales - Last Filed: 07/11/17 03:42> - Past Medical History Allergies/Adverse Reactions: Allergies Allergy/AdvReac Type Severity Reaction Status Date / Time No Known Allergies Allergy Verified 07/10/17 20:26 Home Medications: Ambulatory Orders Ibuprofen [Motrin] 600 mg PO TID #30 tablet 07/11/17 Levofloxacin [Levaquin -] 500 mg PO DAILY #7 tablet 07/11/17 Metronidazole [Flagyl -] 500 mg PO BID #14 tablet 07/11/17 Review of Systems - Review of Systems Able to Perform ROS?: Yes Comments:: 07/10/17 20:53 CONSTITUTIONAL: No reported: Fever, Chills, Diaphoresis, Generalized Weakness, Malaise, Loss of Appetite HEENT: No reported: Rhinorrhea, Nasal Congestion, Throat Pain, Throat Swelling, Difficulty Swallowing, Mouth Swelling, Ear Pain, Eye Pain, Visual Changes CARDIOVASCULAR: No reported: Chest Pain, Syncope, Palpitations, Irregular Heart Rate, Lightheadedness, Peripheral Edema RESPIRATORY: + cough No reported: Shortness of Breath, SOB with Exertion, Orthopnea, Wheezing, Stridor, Hemoptysis GASTROINTESTINAL: + abdominal pain, decrease PO intake No reported: Abdominal Distension, Nausea, Vomiting, Diarrhea, Constipation, Melena, Hematochezia GENITOURINARY: + dysuria No reported: Frequency, Urgency, Hesitancy, Flank Pain, Genital Pain MUSCULOSKELETAL: No reported: Myalgia, Arthralgia, Joint Swelling, Back pain, Neck Pain SKIN: No reported: Rash, Itching, Pallor HEMEATOLOGIC/IMMUNOLOGIC: No reported: Easy Bleeding, Easy Bruising, Lymphadenopathy, Frequent infections ENDOCRINE: No reported: Unexplained Weight Gain, Unexplained Weight Loss, Heat Intolerance , Cold Intolerance NEUROLOGIC: No reported: Headache, Focal Weakness, Paresthesias, Vertigo, Lightheadedness, Unsteady Gait, Seizure, Mental Status Changes, Incontinence PSYCHIATRIC: No reported: Anxiety, Depression All Other Systems: Reviewed and Negative <Nimo Christie - Last Filed: 07/11/17 03:36> *Physical Exam - Vital Signs Last Vital Signs Temp Pulse Resp BP Pulse Ox 103 F H 94 H 18 90/60 100 07/10/17 20:21 07/10/17 20:21 07/10/17 20:21 07/10/17 20:21 07/10/17 20:21 - Physical Exam Comments: 07/10/17 20:53 GENERAL: + moderate distress Well developed, well nourished. Awake and alert. HEENT: Normocephalic, atraumatic. PERRLA, EOMI. No conjunctival pallor. Sclera are non- icteric. Moist mucous membranes. Oropharynx is clear. NECK: Supple. Full ROM. No JVD. Carotid pulses 2+ and symmetric, without bruits. No thyromegaly. No lymphadenopathy. CARDIOVASCULAR: Regular rate and rhythm. No murmurs, rubs, or gallops. Distal pulses are 2+ and symmetric. PULMONARY: No evidence of respiratory distress. Lungs clear to auscultation bilaterally. No wheezing, rales or rhonchi. ABDOMINAL: Soft. Non-tender. Non-distended. No rebound or guarding. No organomegaly. Normoactive bowel sounds. MUSCULOSKELETAL Normal range of motion at all joints. No bony deformities or tenderness. No CVA tenderness. EXTREMITIES: No cyanosis. No clubbing. No edema. No calf tenderness. SKIN: Warm and dry. Normal capillary refill. No rashes. No jaundice. NEUROLOGICAL: Alert, awake, appropriate. Cranial nerves 2-12 intact. No deficits to light touch and temperature in face, upper extremities and lower extremities. No motor deficits in the in face, upper extremities and lower extremities. Normoreflexic in the upper and lower extremities. Normal speech. Toes are down- going bilaterally. Gait is normal without ataxia. PSYCHIATRIC: Cooperative. Good eye contact. Appropriate mood and affect. <Nimo Christie - Last Filed: 07/11/17 03:36> - Vital Signs Last Vital Signs Temp Pulse Resp BP Pulse Ox 103 F H 94 H 18 90/60 100 07/10/17 20:21 07/10/17 20:21 07/10/17 20:21 07/10/17 20:21 07/10/17 20:21 <Juan José Morales - Last Filed: 07/11/17 03:42> ED Treatment Course - LABORATORY CBC & Chemistry Diagram: 07/10/17 20:50 07/10/17 20:50 - RADIOLOGY Radiograph Interpretation: 07/11/17 03:36 EXAM: CT abdomen with out contrast and CT pelvis without contrast IMPRESSION Mild colitis or diverticulitis of the ascending colon with pericolonic edema from infection. Mild nonspecific right perinephric fat stranding may be due to pyelonephritis. Multiple complex and benign renal cortical cysts bilaterally consistent with polycystic kidney disease nearly completely replace the renal cortex bilaterally and a mass cannot be excluded. If there is a clinical concern for a renal cortical mass then followup outpatient MRI kidneys with contrast may be needed. Bilateral mm nonobstructing nephrolithiasis. Complex right ovarian cystic process. If clinically indicated recommend correlation with pelvic ultrasound. 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 - Medications Given in the ED: ED Medications Discontinued Medications Generic Name Dose Route Start Last Admin Trade Name Jennifer PRN Reason Stop Dose Admin Acetaminophen 1,000 mg 07/10/17 20:40 07/10/17 20:50 Ofirmev Injection - IVPB 07/10/17 20:41 1,000 mg ONCE ONE Administration Ondansetron HCl 4 mg 07/10/17 20:47 07/10/17 20:50 Zofran Injection IVPUSH 07/10/17 20:48 4 mg ONCE STA Administration <Nimo Christie - Last Filed: 07/11/17 03:36> - LABORATORY CBC & Chemistry Diagram: 07/10/17 20:50 07/10/17 20:50 <Juan José Morales - Last Filed: 07/11/17 03:42> Medical Decision Making - Medical Decision Making 07/11/17 03:02 Dr. Morales: The scribe's documentation has been prepared under my direction and personally reviewed by me in its entirery. I confirm that the note above accurately reflects all work, treatment, procedures, and medical decision making performed by me. <Juan José Morales - Last Filed: 07/11/17 03:42> *DC/Admit/Observation/Transfer - Attestations Scribe Attestion: 07/10/17 20:53 Documentation prepared by Nimo Christie, acting as medical office professional instructor for Juan José Morales MD <Nimo Christie - Last Filed: 07/11/17 03:36> - Discharge Dispostion Admit: No <Juan José Morales - Last Filed: 07/11/17 03:42> Diagnosis at time of Disposition: Nausea and vomiting, Colitis, Diverticulosis of colon UTI (urinary tract infection) Qualifiers: Urinary tract infection type: site unspecified Hematuria presence: without hematuria Qualified Code(s): N39.0 - Urinary tract infection, site not specified - Discharge Dispostion Disposition: HOME Condition at time of disposition: Stable - Prescriptions Prescriptions: Levofloxacin [Levaquin -] 500 mg PO DAILY #7 tablet Ibuprofen [Motrin] 600 mg PO TID #30 tablet - Referrals Referrals: Rhiannon Townsend [Primary Care Provider] - - Patient Instructions Printed Discharge Instructions: DI for Urinary Tract Infection (UTI), DI for Nausea -- Adult, DI for Colitis, DI for Diverticulitis, DI for Diverticulosis - Post Discharge Activity Work/School Note: Back to Work
[2017-07-10] MEDS ORDERED: SODIUM CHLORIDE 1,000 ML IV STA ×2 (20:40→20:41)
[2017-07-10] MEDS ORDERED: ACETAMINOPHEN 1000 MG/100 ML VIAL (NON FORMULARY) IVPB ONE (20:40)
[2017-07-10] MEDS ORDERED: ONDANSETRON 4 MG/2 ML VIAL ONE (20:47)
[2017-07-10] MEDS ORDERED: ONDANSETRON 4 MG/2 ML VIAL IVPUSH STA (20:47)
[2017-07-10] MEDS ORDERED: ACETAMINOPHEN INJECTION 100 ML IVPB ONE (20:47)
[2017-07-10 20:58] LABS: BASOPHIL 0.2 % (0-2.0); MCH 30.8 pg (25.7-33.7); MEAN CELL VOLUME 90.5 fl (80-96); MEAN PLT VOLUME 8.2 fl (7.5-11.1); NEUTROPHILS 89.9 % (42.8-82.8); PLATELET COUNT 303 K/MM3 (134-434); RDW 14.1 % (11.6-15.6); WHITE BLOOD COUNT 15.2 K/mm3 (4.0-10.0)
[2017-07-10 21:32] LABS: ANION GAP 9 (8-16); CALCIUM 8.9 mg/dL (8.5-10.1); CO2 27 mmol/L (21-32); CREATININE 1.4 mg/dL (0.55-1.02); GLUCOSE,RANDOM 167 mg/dL (74-106); SGOT/AST 31 U/L (15-37); SGPT/ALT 39 U/L (12-78)
[2017-07-10 21:33] LABS: ALK PHOS 85 U/L (45-117); BILIRUBIN,TOTAL 2.5 mg/dL (0.2-1.0); TOT PROT 6.9 g/dl (6.4-8.2)
[2017-07-10] MEDS ORDERED: POTASSIUM CHLORIDE TABS 20 MEQ TABLET.ER (FP) PO ONE (21:43)
[2017-07-11] MEDS ORDERED: KETOROLAC TROMETHAMINE 30 MG/1 ML VIAL IVPUSH ONE (00:15)
[2017-07-11] MEDS ORDERED: KETOROLAC TROMETHAMINE 30 MG/1 ML VIAL ONE (00:30)
[2017-07-11 00:58] LABS: URINE APPEARANCE CLEAR; URINE BILIRUBIN NEGATIVE (NEGATIVE); URINE BLOOD 3+ (NEGATIVE); URINE GLUCOSE (UA) NEGATIVE (NEGATIVE); URINE KETONE NEGATIVE (NEGATIVE); URINE UROBILINOGEN 0.2 mg/dL (0.2-1.0)
[2017-07-11 00:59] LABS: URINE COLOR DK YELLOW; URINE LEUK ESTERASE 1+ (NEGATIVE); URINE NITRITE POSITIVE (NEGATIVE); URINE PROTEIN 2+ (NEGATIVE)
[2017-07-11 01:24] LABS: URINE BACTERIA MODERATE /hpf (NONE SEEN); URINE MUCUS RARE; URINE RBC 236 /hpf (0-3); URINE WBC 550 /hpf (3-5)
[2017-07-11] MEDS ORDERED: POTASSIUM CHLORIDE TABS 20 MEQ TABLET.ER (FP) PO ONE (02:17)
[2017-07-11] MEDS ORDERED: CEFTRIAXONE 50 ML ONE (03:10)
[2017-07-11] MEDS ORDERED: metroNIDAZOLE 250 MG TABLET PO ONE (03:42)
[2017-07-11] MEDS ORDERED: metroNIDAZOLE 250 MG TABLET ONE (03:44)
== END 2017-07-11 03:55 | disposition home or self-care (01) ==
LOC: JER 20:02
PROC: 3E03329 Introduction of Other Anti-infective into Peripheral Vein, Percutaneous Approach (ICD-10-PCS; principal; 2017-07-10)
PROC: 3E0333Z Introduction of Anti-inflammatory into Peripheral Vein, Percutaneous Approach (ICD-10-PCS; 2017-07-10)
PROC: 3E033GC Introduction of Other Therapeutic Substance into Peripheral Vein, Percutaneous Approach (ICD-10-PCS; 2017-07-10)
PROC: 3E0337Z Introduction of Electrolytic and Water Balance Substance into Peripheral Vein, Percutaneous Approach (ICD-10-PCS; 2017-07-10)
DX: K57.90 Diverticulosis of intestine, part unspecified, without perforation or abscess without bleeding (principal); K52.9 Noninfective gastroenteritis and colitis, unspecified; N39.0 Urinary tract infection, site not specified; R11.2 Nausea with vomiting, unspecified
CPT/HCPCS: 36415; 71010-TC; 74176-TC; 80053; 81003; 81015; 83605; 83690; 84703; 85025; 87040; 87086; 87186; 99283-25

== ENCOUNTER 2018-01-03 16:11 | Emergency (ER) | payer OTHER ==
[2018-01-03 16:16] VITALS: BP 143/103; PULSE 78; TEMP 97.9; BMI 25.7
[2018-01-03] MEDS ORDERED: ALBUTEROL SO4 2.5/IPRATROPIUM 0.5 INH SOL 3 ML VIAL.NEB. NEB ONE (17:44)
--- NOTE | 2018-01-03 17:50 | PDOC ---
Attending Attestation - HPI HPI: 01/03/18 18:22 The patient is a 32 year old female with a significant PMH of PCOS and HTN who presents to the emergency department with cold-like symptoms including nasal congestion, headache, and cough beginning approximately 3-4 days ago and for evaluation of elevated blood pressure. She reports she has been compliant with her HTN medications today. Allergies: NKA <Alden Hood - Last Filed: 01/03/18 18:59> - Resident Resident Name: Forest Whitlock - ED Attending Attestation I have performed the following: I have examined & evaluated the patient, The case was reviewed & discussed with the resident, I agree w/resident's findings & plan, Exceptions are as noted - Physicial Exam PE: GENERAL: Awake, alert, and fully oriented, in no acute distress HEAD: No signs of trauma EYES: PERRLA, EOMI, sclera anicteric, conjunctiva clear ENT: Auricles normal inspection, hearing grossly normal, nares with crusting B/L , oropharynx clear without exudates. Dry mucosa NECK: Normal ROM, supple, no lymphadenopathy, JVD, or masses LUNGS: Breath sounds equal, clear to auscultation bilaterally. No wheezes, and no crackles HEART: Regular rate and rhythm, normal S1 and S2, no murmurs, rubs or gallops ABDOMEN: Soft, nontender, normoactive bowel sounds. No guarding, no rebound. No masses EXTREMITIES: Normal range of motion, no edema. No clubbing or cyanosis. No cords, erythema, or tenderness NEUROLOGICAL: Cranial nerves II through XII grossly intact. Normal speech, normal gait SKIN: Warm, Dry, normal turgor, no rashes or lesions noted. - Medical Decision Making Pt with multiple somatic complaints, symptoms consistent with viral URI. Supportive care for this, will discuss further mgmt of BP with PMD. <Reena Moore - Last Filed: 01/06/18 14:10>
[2018-01-03] MEDS ORDERED: SODIUM CHLORIDE 0.9% 1000 ML INFUS.BAG IV ONE (17:52)
[2018-01-03 18:05] LABS: BASO % 0.9 % (0-2.0); EOS % 2.6 % (0-4.5); HEMATOCRIT 37.5 % (32.4-45.2); HEMOGLOBIN 12.7 GM/dL (10.7-15.3); MCH 31.3 pg (25.7-33.7); MCHC 33.8 g/dl (32.0-36.0); MEAN CELL VOLUME 92.5 fl (80-96); MONO % 6.2 % (3.8-10.2); NEUT % 62.3 % (42.8-82.8); PLATELET COUNT 243 K/MM3 (134-434); RBC 4.05 M/mm3 (3.60-5.2); RDW 14.3 % (11.6-15.6); WHITE BLOOD COUNT 6.1 K/mm3 (4.0-10.0)
[2018-01-03 18:27] LABS: ALBUMIN 3.9 g/dl (3.4-5.0); ANION GAP 4 (8-16); BLOOD UREA NITROGEN 16 mg/dL (7-18); CALCIUM 8.4 mg/dL (8.5-10.1); CHLORIDE 107 mmol/L (98-107); CO2 28 mmol/L (21-32); GLUCOSE,RANDOM 90 mg/dL (74-106); POTASSIUM 4.3 mmol/L (3.5-5.1); SODIUM 139 mmol/L (136-145)
[2018-01-03 18:31] LABS: ALK PHOS 45 U/L (45-117); BILIRUBIN,TOTAL 0.9 mg/dL (0.2-1.0); CREATININE 0.9 mg/dL (0.55-1.02); SGOT/AST 6 U/L (15-37); SGPT/ALT 13 U/L (12-78)
--- NOTE | 2018-01-03 18:40 | PDOC ---
History of Present Illness - General Chief Complaint: Headache Stated Complaint: HEADACHE Time Seen by Provider: 01/03/18 17:15 History Source: Patient Exam Limitations: No Limitations - History of Present Illness Initial Comments: 01/03/18 18:32 The patient is a 32F with a PMH of HTN and polycystic kidney disease who presents to the ER with complaints of high blood pressure readings. The patient states that for the past 3-4 days she's had a cough, congestion, and sore throat and during these times, she's recorded increased BP's (140's/100's). She has never had this issue before. She denies any complaints of fever, chills, nausea, vomiting, CP, SOB, dyuria, hematuria. Past History - Past Medical History Allergies/Adverse Reactions: Allergies Allergy/AdvReac Type Severity Reaction Status Date / Time No Known Allergies Allergy Verified 01/03/18 16:12 Home Medications: Ambulatory Orders Ibuprofen [Motrin] 600 mg PO TID #30 tablet 07/11/17 levoFLOXacin [Levaquin -] 500 mg PO DAILY #7 tablet 07/11/17 metroNIDAZOLE [Flagyl -] 500 mg PO BID #14 tablet 07/11/17 Anemia: No Asthma: Yes Cancer: No Cardiac Disorders: No CVA: No COPD: No DVT: No Diabetes: No HTN: Yes Seizures: No Thyroid Disease: No Other medical history: PCOS - Immunization History Immunization Up to Date: Yes - Suicide/Smoking/Psychosocial Hx Smoking Status: No Smoking History: Never smoked Have you smoked in the past 12 months: No Number of Cigarettes Smoked Daily: 0 Information on smoking cessation initiated: No Hx Alcohol Use: No Drug/Substance Use Hx: No Substance Use Type: None Hx Substance Use Treatment: No Review of Systems - Review of Systems Able to Perform ROS?: Yes Comments:: 01/03/18 19:05 GENERAL/CONSTITUTIONAL: No fever or chills. No weakness. HEAD, EYES, EARS, NOSE AND THROAT: Positive for congestion. No change in vision. No ear pain or discharge. No sore throat. CARDIOVASCULAR: No chest pain, palpitations, or lightheadedness. RESPIRATORY: No cough, wheezing, shortness of breath, or hemoptysis. GASTROINTESTINAL: No nausea, vomiting, diarrhea, constipation, or abdominal pain. GENITOURINARY: No dysuria, frequency, hematuria, or change in urination. MUSCULOSKELETAL: No joint or muscle swelling or pain. No neck or back pain. SKIN: No rash or lesions. NEUROLOGIC: No headache, numbness, tingling, weakness, loss of consciousness, or change in strength/sensation. ENDOCRINE: No increased thirst. No abnormal weight change. HEMATOLOGIC/LYMPHATIC: No anemia, easy bleeding, or history of blood clots. ALLERGIC/IMMUNOLOGIC: No hives or skin allergy. Is the patient limited [place] proficient: No *Physical Exam - Vital Signs Last Vital Signs Temp Pulse Resp BP Pulse Ox 97.9 F 78 18 143/103 100 01/03/18 16:14 01/03/18 16:14 01/03/18 16:14 01/03/18 16:14 01/03/18 16:14 - Physical Exam Comments: 01/03/18 19:05 GENERAL: Well developed, well nourished. Awake and alert. No acute distress. HEENT: Normocephalic, atraumatic. Hearing grossly normal. Moist mucous membranes. PERRLA, EOMI. No conjunctival pallor. Sclera are non-icteric. NECK: Supple. Full ROM. No JVD. CARDIOVASCULAR: Regular rate and rhythm. No murmurs, rubs, or gallops. PULMONARY: No evidence of respiratory distress. Lungs clear to auscultation bilaterally. No wheezing, rales or rhonchi. ABDOMINAL: Soft. Non-tender. Non-distended. No rebound or guarding. GENITOURINARY: L CVA tenderness. MUSCULOSKELETAL: Normal range of motion at all joints. No bony deformities or tenderness. EXTREMITIES: No cyanosis. No clubbing. No edema. No calf tenderness. SKIN: Warm and dry. Normal capillary refill. No rashes. No jaundice. NEUROLOGICAL: Alert, awake, appropriate. Cranial nerves 2-12 intact. Normal speech. Gait is normal without ataxia. PSYCHIATRIC: Cooperative. Good eye contact. Appropriate mood and affect. Heart Score/ECG Review #1 General ECG Interpretation: Sinus Rhythm, Normal Rate, Normal Intervals, No acute ischemic changes Compared to previous ECG there are: No significant change ED Treatment Course - LABORATORY CBC & Chemistry Diagram: 01/03/18 17:42 01/03/18 17:42 - ADDITIONAL ORDERS Additional order review: 01/03/18 17:42 RBC 4.05 MCV 92.5 MCHC 33.8 RDW 14.3 MPV 8.0 Neutrophils % 62.3 D Lymphocytes % 28.0 D Monocytes % 6.2 Eosinophils % 2.6 D Basophils % 0.9 D Medical Decision Making - Medical Decision Making 01/03/18 19:06 The patient is a 32F with a PMH of HTN who is presenting with complaints of persistent HTN and URI symptoms. I have drawn basic labs to r/o TIARA, she is not altered or complaining of CP. Pending labs. EKG NSR. 01/03/18 19:14 Dr. Billings paged for recs on medication changes. Dr. Billings's associate, Dr. Díaz says he spoke with them and they recommend d/c with [facility]. Will d/c pt home with [facility] and f/u with PCP.
[2018-01-03 18:46] LABS: URINE APPEARANCE CLEAR; URINE BILIRUBIN NEGATIVE (NEGATIVE); URINE BLOOD NEGATIVE (NEGATIVE); URINE COLOR LTYELLOW; URINE GLUCOSE (UA) NEGATIVE (NEGATIVE); URINE KETONE NEGATIVE (NEGATIVE); URINE LEUK ESTERASE TRACE (NEGATIVE); URINE NITRITE NEGATIVE (NEGATIVE); URINE PROTEIN NEGATIVE (NEGATIVE); URINE UROBILINOGEN NEGATIVE mg/dL (0.2-1.0)
[2018-01-03 18:51] LABS: EPI CELLS RARE /HPF (FEW); URINE MUCUS RARE
[2018-01-03] MEDS ORDERED: guaiFENesin/CODEINE 10 ML UNIT-DOSE CUPS PO ONE (19:01)
[2018-01-03] MEDS ORDERED: guaiFENesin/CODEINE 5 ML UNIT-DOSE CUPS PO ONE (19:48)
--- NOTE | 2018-01-04 08:50 | EKG ---
Test Reason : Blood Pressure : / mmHG Vent. Rate : 064 BPM Atrial Rate : 064 BPM P-R Int : 122 ms QRS Dur : 084 ms QT Int : 424 ms P-R-T Axes : 047 051 033 degrees QTc Int : 437 ms POOR DATA QUALITY, INTERPRETATION MAY BE ADVERSELY AFFECTED SINUS RHYTHM WITH MARKED SINUS ARRHYTHMIA OTHERWISE NORMAL ECG WHEN COMPARED WITH ECG OF 09-DEC-2016 22:28, NONSPECIFIC T WAVE ABNORMALITY NO LONGER EVIDENT IN ANTERIOR LEADS Confirmed by LUISA HATFIELD MD ([id number]) on 01/04/2018 8:50:07 AM Referred By: Confirmed By:LUISA HATFIELD MD
== END 2018-01-03 19:56 | disposition home or self-care (01) ==
LOC: JER 16:11
DX: J06.9 Acute upper respiratory infection, unspecified (principal); I10 Essential (primary) hypertension; E28.2 Polycystic ovarian syndrome
CPT/HCPCS: 36415; 80053; 81003; 81015; 84703; 85025; 93005; 93010; 99282-25

== ENCOUNTER 2020-11-14 02:38 | Emergency (ER) | payer OTHER ==
[2020-11-14 03:01] VITALS: BP 133/95; PULSE 94; TEMP 97.9; BMI 30.1
[2020-11-14] MEDS ORDERED: MAG HYDROX/AL HYDROX/SIMETH 30 ML UNIT-DOSE CUP PO ONE (03:17)
[2020-11-14] MEDS ORDERED: SODIUM CHLORIDE 0.9% 500 ML INFUS.BAG IV ONE (03:18)
[2020-11-14] MEDS ORDERED: MAG HYDROX/AL HYDROX/SIMETH 30 ML UNIT-DOSE CUP ONE (03:21)
[2020-11-14] MEDS ORDERED: FAMOTIDINE 20 MG/50 ML IVPB 20 MG/50 ML MG IVPB ONE ×2 (03:30→04:13)
[2020-11-14 04:53] LABS: EPI CELLS 28 /uL (0-25.1); HYALINE CASTS 4 /uL (0-3.1); PH,URINE 6.5 (5.0-8.0); URINE APPEARANCE CLEAR; URINE BACTERIA 42 /uL (0-1359); URINE BILIRUBIN NEGATIVE (NEGATIVE); URINE COLOR YELLOW; URINE GLUCOSE (UA) NEGATIVE (NEGATIVE); URINE KETONE NEGATIVE (NEGATIVE); URINE LEUK ESTERASE 1+ (NEGATIVE); URINE NITRITE NEGATIVE (NEGATIVE); URINE PROTEIN 2+ (NEGATIVE); URINE RBC 535 /uL (0-23.9); URINE UROBILINOGEN 0.2 mg/dL (0.2-1.0); URINE WBC 90 /uL (0-25.8)
[2020-11-14 04:55] LABS: BASO % 0.8 % (0-2.0); EOS % 1.9 % (0-4.5); HEMATOCRIT 34.2 % (32.4-45.2); HEMOGLOBIN 11.5 GM/dL (10.7-15.3); LYMPH % 26.5 % (8-40); MCH 30.4 pg (25.7-33.7); MCHC 33.5 g/dl (32.0-36.0); MEAN CELL VOLUME 90.8 fl (80-96); MEAN PLT VOLUME 7.9 fl (7.5-11.1); MONO % 5.9 % (3.8-10.2); NEUT % 64.9 % (42.8-82.8); PLATELET COUNT 373 K/MM3 (134-434); RBC 3.77 M/mm3 (3.60-5.2); RDW 14.5 % (11.6-15.6); WHITE BLOOD COUNT 7.6 K/mm3 (4.0-10.0)
[2020-11-14 05:13] LABS: POTASSIUM 4.3 mmol/L (3.5-5.1)
[2020-11-14 05:15] LABS: CALCIUM 9.1 mg/dL (8.5-10.1)
[2020-11-14 05:16] LABS: ALBUMIN 3.5 g/dl (3.4-5.0); BLOOD UREA NITROGEN 18.4 mg/dL (7-18)
[2020-11-14 05:19] LABS: CREATININE 1.2 mg/dL (0.55-1.3)
[2020-11-14 05:20] LABS: BILIRUBIN,TOTAL 0.4 mg/dL (0.2-1)
[2020-11-14 05:21] LABS: TOT PROT 7.2 g/dl (6.4-8.2)
[2020-11-14] MEDS ORDERED: SULFAMETHOXAZOLE/TRIMETHOPRIM 800MG/160MG D.S. TABLET PO ONE (05:35)
[2020-11-14] MEDS ORDERED: ONDANSETRON 4 MG TABLET PO ONE (05:48)
[2020-11-14] MEDS ORDERED: ONDANSETRON 4 MG TABLET PO PRN (05:48)
[2020-11-14] MEDS ORDERED: ONDANSETRON *ODT* 4 MG TABLET ONE (06:01)
[2020-11-14] MEDS ORDERED: SULFAMETHOXAZOLE/TRIMETHOPRIM 800MG/160MG D.S. TABLET ONE (06:01)
[2020-11-14] MEDS ORDERED: ACETAMINOPHEN INJECTION 100 ML IVPB ONE (06:22)
== END 2020-11-14 06:10 | disposition home or self-care (01) ==
LOC: JER 02:38
PROC: 3E033GC Introduction of Other Therapeutic Substance into Peripheral Vein, Percutaneous Approach (ICD-10-PCS; principal; 2020-11-14)
DX: R11.2 Nausea with vomiting, unspecified (principal); N39.0 Urinary tract infection, site not specified
CPT/HCPCS: 36415; 71046-TC-FY; 80053; 81003; 84703; 85025; 87086; 87804; 99284-25; C9803; U0003

== ENCOUNTER 2021-06-20 14:36 | Emergency (ER) | payer OTHER ==
[2021-06-20 14:40] VITALS: BP 125/88; PULSE 109; TEMP 98.8; BMI 31.1
== END 2021-06-20 15:34 | disposition home or self-care (01) ==
LOC: JERFT 14:36
DX: L73.9 Follicular disorder, unspecified (principal); L30.9 Dermatitis, unspecified
CPT/HCPCS: 99281-25

== ENCOUNTER 2022-04-11 16:49 | Emergency (ER) | payer OTHER ==
[2022-04-11 17:33] VITALS: BP 121/82; PULSE 97; TEMP 98.1; BMI 31.8
[2022-04-11] MEDS ORDERED: KETOROLAC TROMETHAMINE 30 MG/1 ML VIAL IM ONE (18:35)
[2022-04-11] MEDS ORDERED: KETOROLAC TROMETHAMINE 30 MG/1 ML VIAL ONE (18:43)
== END 2022-04-11 20:55 | disposition home or self-care (01) ==
LOC: JERFT 16:49 → JER 16:49 → JERFT 20:55
PROC: 3E0233Z Introduction of Anti-inflammatory into Muscle, Percutaneous Approach (ICD-10-PCS; principal; 2022-04-11)
DX: M79.672 Pain in left foot (principal)
CPT/HCPCS: 73630-TC-LT; 93971-TC; 99284-25